=== PATIENT | female | born 1975 | race Caucasian/White ===

== ENCOUNTER → 2017-06-25 08:17 | Outpatient (CLI) | payer BC, SELFPAY ==
--- NOTE | 2017-06-25 08:21 | MM_ITS ---
MM Dig screening mamm BI w/CAD CAD Screening COMPARISON: Digital mammograms 04/02/2015 and 04/10/2016 INDICATION: There is no personal or family history of breast cancer TECHNIQUE: Standard CC and MLO images were obtained. R2 CAD reviewed. FINDINGS: There is a diffusely dense and heterogenic parenchymal pattern definitely lessening the sensitivity of mammography. There are few benign-appearing calcifications in each breast. There is no suspicious lesion in either breast and there are no suspicious microcalcifications. IMPRESSION: Stable dense parenchymal pattern with no suspicious lesion seen recommend yearly follow-up BI-RADS Category: 2 Benign Finding(s) RECOMMENDED FOLLOW-UP: 1YR - 1 YEAR FOLLOW-UP (A letter has been sent to the patient regarding results of the study.)
== END ==
PROVIDERS: PCP Emergency Medicine; Visit Provider Obstetrics & Gynecology
DX: Z12.31 Encounter for screening mammogram for malignant neoplasm of breast (principal)
CPT/HCPCS: 77067

== ENCOUNTER → 2018-08-05 15:43 | Outpatient (CLI) | payer BC, SELFPAY ==
--- NOTE | 2018-08-05 15:48 | MM_ITS ---
MM Dig screening mamm BI w/CAD ORDERING PHYSICIAN : Kris Calvo MD PATIENT AGE: 42 years GENDER: Female COMPARISON: May & 2015. June 2017 INDICATION: Routine screening mammogram. Patient does take estrogen. No new complaints. Noncontributory family history TECHNIQUE: Standard CC and MLO images were obtained. R2 CAD reviewed. FINDINGS: Fairly dense breast bilaterally. Fibroglandular elements & density most pronounced towards upper quadrant of both breasts a similar to previous study.. This region as well as overall parenchymal pattern appears similar, and stable since prior mammograms . No new mass or suspicious calcifications. A few scattered benign punctate calcifications noted bilaterally as detailed below. . Bilateral follow-up in one year adequate. RIGHT BREAST: significant new areas of concern. Subtle 2-3 small calcifications loosely grouped at the deep breast inferiorly on MLO view faintly seen &, are similar to 2015 & can be followed. LEFT BREAST. 2 Small grouping of tiny punctate calcifications seen at the left breast. Previously be followed. Most consistent grouping is seen at Deep breast towards 11 o'clock position. These same benign-appearing punctate calcifications were seen on 2017 2014 and only slightly denser today-can be followed safely. ... IMPRESSION: .... . No new areas of significant concern.. . Follow-up in one year recommended. Dense breast bilaterally-(likely in part reflect exogenous hormones effect,/estrogen) Stable small punctate grouping small calcifications left breast can be followed. BI-RADS Category: 2 Benign Finding(s) RECOMMENDED FOLLOW-UP: 1YR 1 YEAR FOLLOW-UP (A letter has been sent to the patient regarding results of the study.)
== END ==
PROVIDERS: PCP Family Medicine; Visit Provider Obstetrics & Gynecology
DX: Z12.31 Encounter for screening mammogram for malignant neoplasm of breast (principal)
CPT/HCPCS: 77067

== ENCOUNTER → 2019-06-20 13:22 | Outpatient (CLI) | payer BC, SELFPAY ==
[2019-06-20 13:34] LABS: Basophils % 0.4 % (0.1-2.0); Eosinophils # 0.2 K/mm3 (0.0-0.4); Eosinophils % 3.1 % (0.1-12.0); Hematocrit 41.9 % (37.0-47.0); Hemoglobin 14.3 g/dL (12.2-16.2); Lymphocytes % 30.7 % (10-50); Mean Corpuscular HGB Conc 34.2 g/dL (31.8-35.4); Mean Corpuscular Hemoglobin 30.6 pg (27.0-31.2); Mean Corpuscular Volume 89.6 fl (81-99); Mean Platelet Volume 8.6 fl (7.4-10.4); Monocytes # 0.3 K/mm3 (0.1-1.0); Monocytes % 4.9 % (1.7-9.3); Neutrophils # 3.9 K/mm3 (1.8-7.8); Neutrophils % 60.9 % (37.0-80.0); Platelet Count 299 K/mm3 (142-424); Red Blood Count 4.68 M/mm3 (4.20-5.40); Red Cell Distribution Width 13.9 % (11.5-17.5); White Blood Count 6.4 K/mm3 (4.8-10.8)
[2019-06-20 13:57] LABS: Creatine Kinase MB 0.6 ng/ml (0.0-3.6); Troponin I < 0.02 ng/ml (0.00-0.06)
[2019-06-20 14:00] LABS: Alanine Aminotransferase 21 U/L (12-78); Albumin Level 4.4 gm/dL (3.4-5.0); Albumin/Globulin Ratio 1.5 (1.1-1.8); Alkaline Phosphatase 81 U/L (46-116); Anion Gap 14.2 mEq/L (5-15); Aspartate Amino Transferase 7 U/L (15-37); Bilirubin,Total 0.5 mg/dL (0.2-1.0); Blood Urea Nitrogen 16 mg/dL (7-18); CKMB Relative Index 1.2 U/L (0-4.0); Calcium 8.8 mg/dL (8.5-10.1); Carbon Dioxide 27 mmol/L (21.0-32.0); Chloride 103 mmol/L (98-107); Creatine Kinase 50 U/L (26-192); Creatinine,Serum 0.68 mg/dL (0.55-1.02); Estimated Glomerular Filt Rate 94 ml/min (>60); Free T4 (Free Thyroxine) 1.19 ng/dl (0.76-1.46); GFR (African American) 113 ML/MIN (>60); Globulin 2.9 gm/dl (1.3-3.2); Glucose 91 mg/dL (74-106); Potassium 4.2 mmoL/L (3.5-5.1); Sodium 140 mmol/L (136-145); Thyroid Stimulating Hormone 2.05 uIU/ml (0.358-3.740); Total Protein,Serum 7.3 gm/dL (6.4-8.2)
[2019-06-20 15:17] LABS: Chol/HDL Ratio 3.1 (1-3.5); Cholesterol 199 mg/dL (140-200); HDL Cholesterol 64 mg/dL (29-89); LDL Cholesterol 109 mg/dL (0-130); Triglycerides 128 mg/dL (30-200); VLDL Cholesterol 26 mg/dL (0-40)
[2019-06-22 18:00] LABS: Vitamin D 25 Hydroxy 24.2 ng/mL (30.0-100.0)
== END ==
PROVIDERS: Visit Provider Nurse Practitioner Family
DX: R53.83 Other fatigue (principal); K59.00 Constipation, unspecified; M79.622 Pain in left upper arm; E03.9 Hypothyroidism, unspecified; E55.9 Vitamin D deficiency, unspecified
CPT/HCPCS: 80053; 80061; 82550; 82553; 82652; 84439; 84443; 84484; 85025

== ENCOUNTER → 2019-06-26 07:42 | Outpatient (CLI) | payer BC, SELFPAY ==
--- NOTE | 2019-06-26 07:43 | CT_ITS ---
PROCEDURE: CT HEART W CALCIUM SCORE CLINICAL HISTORY: atypical angina Left-sided chest pain COMPARISON: No exams were available for comparison TECHNIQUE: Axial images obtained with sagittal and coronal reformats. All CT scans at the facility use one or more dose reduction, viz: automated exposure control, ma/kV adjustment per patient size (including targeted exams where dose is matched to indication, i.e. head), or iterative reconstruction technique. FINDINGS: The coronary artery calcium score is 0. There is no identifiable calcific atherosclerotic plaque indicating very low cardiovascular disease risk. Incidental findings: 4.4 x 2 cm oval soft tissue density in the retroperitoneum on the left. This is contiguous with the posterior aspect of part of the adrenal gland which is incompletely imaged and may only be due to the superior aspect of the left kidney. Suggest unenhanced CT scan of the abdomen to confirm as a renal or adrenal mass is not excluded. IMPRESSION: 1. No identifiable calcific plaque with coronary artery calcium score of 0. 2. 4.4 x 2 cm oval soft tissue density in the retroperitoneum on the left. This is contiguous with the posterior aspect of part of the adrenal gland which is incompletely imaged and may only be due to the superior aspect of the left kidney. Suggest unenhanced CT scan of the abdomen to confirm as a renal or adrenal mass is not excluded Dictated by: Jevon Quijano MD 06/26/2019 10:08 Electronically signed by Jevon Quijano MD in [place] 06/26/2019 10:08
== END ==
PROVIDERS: PCP Nurse Practitioner Family; Visit Provider Internal Medicine Cardiovascular Disease
DX: Z13.6 Encounter for screening for cardiovascular disorders (principal); I20.8 Other forms of angina pectoris; F17.200 Nicotine dependence, unspecified, uncomplicated
CPT/HCPCS: 75571

== ENCOUNTER → 2019-06-30 06:07 | Outpatient (CLI) | payer BC, SELFPAY ==
--- NOTE | 2019-06-30 06:07 | CA_ITS ---
APPROVED REPORT EXAM: Comprehensive 2D, Doppler, and color-flow Echocardiogram Card Assembler: Ira Patel RVT Ht: 5 ft 5 in Wt: 143lbs BSA: 1.72 BP: 140/74 mmHg Indications: Angina,Smoker 2D Dimensions LVOT 1.62 cm (M/F) 1.5-2.5 M-Mode Dimensions RVDd 3.05 cm (0.9-2.6) LVDd 2.91 cm (3.5-5.7) LVDs 2.02 cm (3.5-5.7) IVSd 1.35 cm (0.6-1.1) PWd 0.99 cm (0.6-1.1) EF (Teich) 59.70% FS 30.60% EDV (Teich) 32.50 mL ESV (Teich) 13.10 mL LV Diastology E/A Ratio 1.35 Mitral Valve MV A Velocity 53.00 (40-130 cm/s) Left Ventricle Left atrium is normal size, left ventricle is normal size, there is no concentric left ventricular hypertrophy, visually estimated ejection fraction 55% with no regional wall motion abnormality, diastolic parameters are within normal range. Right Ventricle Right atrium is normal size, right ventricle is mildly enlarged with normal contractility. Aortic Valve Aortic valve is grossly normal, there is no aortic stenosis or aortic insufficiency. Mitral Valve Mitral valve is grossly normal, there is no mitral stenosis, there is mild mitral regurgitation. Tricuspid Valve Tricuspid valve is grossly normal, there is mild tricuspid regurgitation. Pulmonic Valve Pulmonic valve is poorly visualized. Great Vessels Aortic root is normal size. Pericardium No significant pericardial effusion noted. Conclusion 1. Normal left ventricular size, preserved left ventricular systolic function, visually estimated ejection fraction 55% with no regional wall motion abnormality, diastolic parameters are within normal range. 2. Qualitatively mildly enlarged right ventricle with normal contractility. 3. Mild mitral and tricuspid regurgitation. 4. No significant pericardial effusion noted. Electronically signed by : Manish Rosario, 07/01/2019 06:12:04
--- NOTE | 2019-06-30 06:14 | NM_ITS ---
APPROVED REPORT Exam: Nuclear Stress Test Indication: Chest pain, Tobacco use, Family history Patient Location: Outpatient Stress Tech: Hailee HopkinsQuebrada [place] Tech:Rupali Gann, TRAVIST, RT (R)(N) Ht: 5 ft 5 in Wt: 140 lbs Bra Size: C HR: 57 bpm BP: 148/76 mmHg BSA: 1.70 m2 BMI: 23.2 History: Chest pain, Tobacco use, Family history Procedure: Patient exercised on Arturo protocol 11:15 minutes and sec, resting heart rate 57 bpm, resting blood pressure 148/76 mmHg, with exercise maximum heart rate achived was 169 bpm which is Greater than 85 % of the maximum predicted heart rate and blood pressure was 175/70 mmHg. Test was stopped due to SOB. Patient denied any complaint of chest pain. Patient has Good exercise capacity, achieved 12.8 METs of workload on treadmill, the blood pressure response to exercise was Adequate. Electrocardiogram Resting electrocardiogram showed sinus rhythm, with exercise there is less than 1.[address] segment depression noted from the baseline EKG. The EKG portion of the exercise Myoview is negative for ischemia. Cardiac Stress and Resting SPECT Images: Cardiac Stress and Resting SPECT images were obtained using technetium 99m Myoview 30.7 mCi stress and 10.95 mCi at rest. Gated SPECT for analysis of segmental wall motion and calculation of the ejection fraction also done. Cardiac stress and resting SPECT images show uniform myocardial activity without segmental perfusion abnormality, computer derived ejection fraction is 60% with no regional wall motion abnormality, right ventricle is normal size and contractility. Conclusion: 1. The EKG portion of the exercise Myoview is negative for ischemia, patient has good exercise capacity achieved 12.8 mets of workload on treadmill, the blood pressure response to exercise was adequate, there was no exercise-induced chest discomfort. 2. No scintigraphic evidence of reversible ischemia seen at this level of exercise, computer derived ejection fraction 60% with no regional wall motion abnormality, right ventricle is normal size and contractility. 3. Normal exercise Myoview study. Electronically signed by : Manish Rosario, 06/30/2019 19:36:08
--- NOTE | 2019-06-30 06:14 | CA_ITS ---
APPROVED REPORT Exam: Exercise Treadmill Technologist: Reema Duong, Ht: 5 ft 5 in Wt: 140 lbs BSA: 1.70 m2 HR: 57 bpm BP: 148/76 mmHg Indications: Angina Medical History Medications: Estradiol,,,,, Vitamin D,,,,, Omeperazole,,,,, Allergies: Sulfa Cardiac Risk Factors: FHX of CAD, Smoking Stress Test Details Test: Arturo HR Resting HR: 73 bpm Max Heart Rate (APMHR): 175 bpm Max HR Achieved: 169 bpm Target HR (85% APMHR): 148 bpm % of APMHR: 96 Recovery HR: 108 bpm BP Resting BP: 175/70 mmHg Max BP: 175/70 mmHg Recovery BP: 169.0/75.0 mmHg ECG Resting ECG: Sinus Rhythm Clinical Exercise duration: 11:15 min Highest Stage Achieved: Stage 3: 3.4 mph at 14% grade. Exercise capacity: 12.8 METs Stress ECG Conclusion Arturo Protocol completed. Test stopped due to SOB, that resolved during recovery. No chest pain. No ectopy noted. Less than 1.5mm ST Depression. Images to follow. Test Summary REST . . . . . . . Standing REST . . . . . . . Sitting REST 08:08 0.0 0.0 73 . 175/ 70 . . Stage 1 01:00 10.0 1.7 94 . . . . Stage 1 02:00 10.0 1.7 103 . . . . Stage 1 03:00 10.0 1.7 101 . 154/ 84 . . Stage 2 01:00 12.0 2.5 117 . . . . Stage 2 02:00 12.0 2.5 126 . . . . Stage 2 03:00 12.0 2.5 128 . 162/ 90 . . Stage 3 01:00 14.0 3.4 142 . . . . Stage 3 02:00 14.0 3.4 151 . . . . Stage 3 03:00 14.0 3.4 149 . 174/ 92 . . Stage 4 01:00 16.0 4.2 166 . . . . Stage 4 . . . . . . . Cardiolite injected Stage 4 02:00 16.0 4.2 169 . . . . Stage 4 02:15 16.0 4.2 169 . . . Stop exercise at 11:15 RECOVERY 01:00 0.0 0.0 139 . . . . RECOVERY 02:00 0.0 0.0 108 . 169/ 75 . . RECOVERY 03:00 0.0 0.0 92 . 152/ 64 . . RECOVERY 04:00 0.0 0.0 92 . 152/ 64 . . RECOVERY 04:25 0.0 0.0 96 . 126/ 70 . . Electronically signed by : Manish Rosario, 06/30/2019 19:33:48
--- NOTE | 2019-06-30 08:36 | HMH.ITSHM ---
Current Home Medications as stated by this patient Savannah Corcoran or vendor representatives. []ESTRADIOL OMEPRAZOLE ASA
== END ==
PROVIDERS: PCP Nurse Practitioner Family; Visit Provider Internal Medicine Cardiovascular Disease
DX: I20.8 Other forms of angina pectoris (principal); F17.200 Nicotine dependence, unspecified, uncomplicated
CPT/HCPCS: 78452; 93017; 93306; A9502

== ENCOUNTER → 2019-07-18 12:28 | Outpatient (CLI) | payer BC, SELFPAY ==
--- NOTE | 2019-07-18 12:40 | CT_ITS ---
PROCEDURE: CT ABDOMEN WO/W CON CLINICAL HISTORY: renal protocol The follow-up possible left renal/adrenal mass COMPARISON: CT HEART W CALCIUM SCORE from 06/26/2019 TECHNIQUE: Pre and post enhanced images are obtained following the intravenous administration of 75 mL of Optiray 350 Axial images obtained with sagittal and coronal reformats. All CT scans at the facility use one or more dose reduction, viz: automated exposure control, ma/kV adjustment per patient size (including targeted exams where dose is matched to indication, i.e. head), or iterative reconstruction technique. FINDINGS: The liver, gallbladder, spleen, adrenal glands, pancreas, and kidneys have an unremarkable appearance. The density noted in the retroperitoneum on the left on the coronary arteries scan represents exaggerated superior location of the left kidney. No renal or adrenal mass is evident. There is a small umbilical hernia containing fat. IMPRESSION: Negative CT scan of the abdomen. No evidence of adrenal or renal mass. Dictated by: Jevon Quijano MD 07/18/2019 13:47 Electronically signed by Jevon Quijano MD in [place] 07/18/2019 13:47
== END ==
PROVIDERS: PCP Nurse Practitioner Family; Visit Provider Nurse Practitioner Family
DX: N28.89 Other specified disorders of kidney and ureter (principal)
CPT/HCPCS: 74170; Q9967

== ENCOUNTER → 2019-08-08 15:44 | Outpatient (CLI) | payer BC, SELFPAY ==
--- NOTE | 2019-08-08 15:44 | MM_ITS ---
PROCEDURE: MM DIG SCREENING MAMM BI W/CAD CLINICAL INDICATION: Routine Screening Mammogram There is no personal or family history of breast cancer. The patient is on estrogen. COMPARISON: [facility] DIG MAMM-SCREEN D[facility]AN from 04/10/2016 [facility] MM Dig screening mamm BI w/CAD from 06/25/2017 [facility] MM Dig screening mamm BI w/CAD from 08/05/2018 TECHNIQUE: Standard CC and MLO images and 3D Tomosynthesis was obtained. R2 CAD reviewed. FINDINGS: There is a diffusely dense and heterogenic parenchymal pattern and the findings are bilateral and symmetrical. Francois images are most helpful in this type of breast parenchyma. There is a benign-appearing calcification in each breast. There is no new or suspicious lesion in either breast and no suspicious microcalcifications. IMPRESSION: Stable diffusely dense parenchymal pattern with no suspicious lesions seen BI-RAD Category: 2 Benign Finding(s) FOLLOW-UP: 1YR 1 Year Follow-up (A letter has been sent to the patient regarding results of the study.) Dictated by: Dr. Cesar Estrella MD 08/13/2019 09:[address] Cesar Estrella MD in [place] 08/13/2019 09:20
== END ==
PROVIDERS: PCP Nurse Practitioner Family; Visit Provider Obstetrics & Gynecology
DX: Z12.31 Encounter for screening mammogram for malignant neoplasm of breast (principal)
CPT/HCPCS: 77063; 77067

== ENCOUNTER → 2020-05-03 09:51 | Outpatient (CLI) | payer BC, SELFPAY ==
--- NOTE | 2020-05-03 09:53 | CA_ITS ---
APPROVED REPORT Water Plant Operator: CT Laterality: Bilateral Indications: dizziness Risk Factors Hypertension: Smoking Doppler Spectral Velocity Analysis ECA (R) 41.20/ cm/s ECA (L) 51.70/ cm/s dICA (R) 103.40/39.80 cm/s dICA (L) 101.50/34.70 cm/s Mary (R) 87.70/36.40 cm/s Mary (L) 85.40/41.70 cm/s pICA (R) 69.50/23.00 cm/s pICA (L) 79.10/38.50 cm/s dCCA (R) 124.20/40.30 cm/s dCCA (L) 100.20/37.90 cm/s pCCA (R) 97.30/21.40 cm/s pCCA (L) 112.40/34.70 cm/s Vert (R) 41.20/ cm/s Vert (L) 51.70/ cm/s ICA/CCA 0.80 ICA/CCA 1.00 Findings Duplex evaluation demonstrates stenosis of the right proximal internal carotid artery <20%. Duplex evaluation demonstrates stenosis of the left proximal internal carotid artery <20%. Duplex evaluation demonstrates antegrade flow of the bilateral Vertebral Arteries. Conclusion Duplex evaluation demonstrates stenosis of the right proximal internal carotid artery <20%. Duplex evaluation demonstrates stenosis of the left proximal internal carotid artery <20%. Duplex evaluation demonstrates antegrade flow of the bilateral Vertebral Arteries. Electronically signed by : Jevon Quijano MD 05/03/2020 17:17:43
--- NOTE | 2020-05-03 10:54 | CT_ITS ---
PROCEDURE: CT HEAD/BRAIN WO CON CLINICAL INDICATION: dizziness, left arm numbness COMPARISON: CT HDWO CT HEAD W/O CONTRAST from 11/22/2016 TECHNIQUE: Axial images obtained. All CT scans at the facility use one or more dose reduction, viz: automated exposure control, ma/kV adjustment per patient size (including targeted exams where dose is matched to indication, i.e. head), or iterative reconstruction technique. FINDINGS: No midline shift, mass effect, intracranial hemorrhage, hydrocephalus, or extra-axial fluid collection is evident. The calvarium has an unremarkable appearance. No mastoid effusion. There is mucosal thickening involving the ethmoid sinuses IMPRESSION: Ethmoid sinus disease otherwise with no acute intracranial Dictated by: Jevon Quijano MD 05/03/2020 16:31 Jevon Quijano MD in [place] 05/03/2020 16:31
== END ==
PROVIDERS: PCP Nurse Practitioner Family; Visit Provider Urology
DX: R42 Dizziness and giddiness (principal); R20.0 Anesthesia of skin; R00.1 Bradycardia, unspecified; I10 Essential (primary) hypertension; F17.200 Nicotine dependence, unspecified, uncomplicated
CPT/HCPCS: 70450; 93880

== ENCOUNTER → 2020-05-13 08:58 | Outpatient (CLI) | payer BC, SELFPAY ==
[2020-05-13 11:56] LABS: Chloride 105 mmol/L (98-107)
[2020-05-13 11:57] LABS: Potassium 4.4 mmoL/L (3.5-5.1); Sodium 140 mmol/L (136-145)
[2020-05-13 12:00] LABS: Anion Gap 10.4 mEq/L (5-15); Blood Urea Nitrogen 16 mg/dl (7-17); Calcium 9.2 mg/dl (8.4-10.2); Carbon Dioxide 29 mmol/L (22.0-30.0); Estimated Glomerular Filt Rate 108 ml/min (>60); GFR (African American) 130 ML/MIN (>60); Glucose 77 mg/dl (74-100)
== END ==
PROVIDERS: Visit Provider Urology
DX: R00.1 Bradycardia, unspecified (principal); R42 Dizziness and giddiness; R20.0 Anesthesia of skin; I10 Essential (primary) hypertension; F17.200 Nicotine dependence, unspecified, uncomplicated
CPT/HCPCS: 36415; 80048

== ENCOUNTER → 2020-08-09 14:58 | Outpatient (CLI) | payer BC, SELFPAY ==
--- NOTE | 2020-08-09 14:58 | MM_ITS ---
PROCEDURE: MM DIG SCREENING MAMM BI W/CAD Digital Breast Tomosynthesis Included CLINICAL INDICATION: screening There is no personal or family history of breast cancer. The patient currently is on estrogen. COMPARISON: [facility] MM Dig screening mamm BI w/CAD from 06/25/2017 [facility] MM Dig screening mamm BI w/CAD from 08/05/2018 [facility] MM DIG SCREENING MAMM BI W/CAD from 08/08/2019 TECHNIQUE: Standard CC and MLO images and 3D Tomosynthesis was obtained. R2 CAD reviewed. FINDINGS: There is a diffusely dense and heterogenic parenchymal pattern basically stable and unchanged from the previous exam. There are few scattered benign-appearing microcalcifications in each breast in addition to minimal arterial calcification in each breast. There is no new or suspicious lesion in either breast and no suspicious microcalcifications. IMPRESSION: Stable diffusely dense parenchymal pattern with no suspicious lesions seen BI-RAD Category: 2 Benign Finding(s) FOLLOW-UP: 1YR 1 Year Follow-up (A letter has been sent to the patient regarding results of the study.) Dictated by: Dr. Cesar Estrella MD 08/11/2020 08:58 Dr. Cesar Estrella MD in [place] 08/11/2020 08:58
== END ==
PROVIDERS: PCP Nurse Practitioner Family; Visit Provider Nurse Practitioner Family
DX: Z12.31 Encounter for screening mammogram for malignant neoplasm of breast (principal)
CPT/HCPCS: 77063; 77067

== ENCOUNTER → 2020-11-12 14:16 | Outpatient (CLI) | payer BC, SELFPAY | PROVIDERS: Visit Provider Internal Medicine Gastroenterology | DX: Z01.812 Encounter for preprocedural laboratory examination (principal); Z11.52 Encounter for screening for COVID-19; Z13.810 Encounter for screening for upper gastrointestinal disorder; Z12.11 Encounter for screening for malignant neoplasm of colon | CPT/HCPCS: U0003 ==

== ENCOUNTER 2020-11-15 08:40 | Day surgery (SDC) | payer BC, SELFPAY ==
[2020-11-09 12:49] VITALS: BMI 23.1
[2020-11-15] VITALS (7 sets, daily range): BP systolic 93–136; BP diastolic 55–74; PULSE 47–58; RESP 18; TEMP 37.1; O2SAT 97–100
--- NOTE | 2020-11-15 09:12 | P.PN_ITS ---
[facility] Anesthesia Checklist - Patient Identification Patient Identification: Arm Band - Structural Data Admitted From: Home Planned Operative Procedure/s: EGD/Colonoscopy Consent for Planned Operative Procedure(s) Verified: Yes - NPO Status Verified Time NPO: 00:00 - Airway Assessment C-Spine Mobility Assessed: Yes TMJ Mobility Assessed: Yes Dentition: Good Dentition - Neurological Assessment Level of Consciousness: Awake - Anesthesia Plan Anesthesia Risk discussed: Yes Anesthesia Plan: Verified ASA Class: II Anesthesia Type: MAC [facility] History I have reviewed the patient's past medical history: Yes Medical History: Reports:: Gastroesophageal Reflux Disease(GERD), Hypertension Denies:: Cancer, Diabetes Mellitus Type 1, Diabetes Mellitus Type 2, Internal Pacemaker, MRSA, Seizures *Have you ever received a pneumonia vaccine?: No *Have you received a flu vaccine this season?: No Other Medical History: Reports: Other Anesthesia experience/problems:: None Other Surgeries: Yes: , Hysterectomy-Total, Other. No: Pacemaker Amputation: No Fractures: No - *Social History Last grade of school completed: Some college Smoking Status: Current every day smoker Tobacco Type: cigarettes # Packs/Day (cigarettes): 1 Alcohol Intake: current Alcohol Intake Frequency:: a few times a month Substance Use Type: denies use *Occupational Status:: employed Housing: house Household Members: spouse *Travel in the last 8 weeks: None Family Hx:: Cancer
--- NOTE | 2020-11-15 10:07 | P.PCN_ITS ---
[facility] Procedure Note Procedure Note:: Upper Endoscopy Procedure Report: Esophagogastroduodenoscopy with cold biopsies Endoscopost: Robb Lamas II, MD Referring Physician: ENZO Gonzales Date of Procedure: November 15, 2020 Equipment: Olympus GIF 190 standard upper endoscope Sedation: MAC sedation Indications: Mrs. Corcoran is a 44-year-old female who is here for screening upper endoscopy. Her father had esophageal cancer in his mid 60s. She reports no heartburn, reflux or dysphagia. She reports no indigestion or dyspepsia. This is her first upper endoscopy. Procedure: Prior to the procedure, a history and physical exam was performed, and patient's medications and allergies were reviewed. The risks, benefits and alternatives of the sedation and procedure were discussed with the patient. All questions were answered and informed consent was obtained. The patient was brought to the procedure room. Patient identification and proposed procedure were verified by the physician and the nurse. The patient was placed in a left lateral decubitus position and the scope was passed under direct vision. Throughout the procedur e, the patient's blood pressure, pulse, and oxygen saturations were monitored continuously. The upper GI endoscopy was accomplished without difficulty. The patient tolerated the procedure well. Findings: The scope was passed directly into the upper esophagus and advanced to the third portion of the duodenum. The post bulbar duodenum and duodenal bulb were normal with normal mucosa and conniventes. The scope was withdrawn through a normal duodenal bulb and pylorus into the stomach. There was some mild bile reflux with mild linear reactive gastropathy of the antrum. The remainder of the body and fundus of the stomach were grossly normal. Upon retroflexion there was no hiatal hernia. 2 biopsies were taken in the antrum and along the lesser curvature for histology to rule out gastritis and/or H pylori. The scope was then withdrawn into the esophagus. There was some mildly serrated Z-line. Cold biopsies were obtained at the GE junction. The remainder of the esophageal mucosa was normal. Impression: 1. Mild linear reactive gastropathy Plan: I will follow-up the biopsies. The patient should not require further surveillance since there is no evidence of Cárdenas's esophagus. Esophageal cancer does not have the stronger genetic influence as does colon cancer. Generally this can be acquired from risk factors (i.e. GERD, smoking, etc.). The patient does not have any endoscopic or personal risk factors and her father was over age 60. I will discuss the findings with the patient and family and proceed with colonoscopy.
--- NOTE | 2020-11-15 10:26 | HMH.PROC ---
[facility] Procedure Note Procedure Note:: Colonoscopy Procedure Report: Colonoscopy with cold snare polypectomy and Endo Clip placement Endoscopist: Rbob Lamas II, MD Referring physician: ENZO Gonzales Date of Procedure: November 15, 2020 Equipment: Olympus 190 variable stiffness pediatric colonoscope Sedation: MAC sedation Indication: Mrs. Corcoran is a 44-year-old female who is here for high risk screening colonoscopy. Her sister had colon cancer at the age of 50. The patient reports no abdominal pain, weight loss, change in her bowel habits or rectal bleeding. This is her first colonoscopy. Procedure: Prior to the procedure, a history and physical exam was performed, and patient's medications and allergies were reviewed. The risks, benefits and alternatives of the sedation and procedure were discussed with the patient. All questions were answered and informed consent was obtained. The patient was brought to the procedure room. Patient identification and proposed procedure were verified by the physician and the nurse. The patient was placed in a left lateral decubitus position and the scope was passed under direct vision. Throughout the procedure, the patient's blood pressure, pulse, and oxygen saturations were monitored continuously. The colonoscopy was accomplished without difficulty. The patient tolerated the procedure well. Findings: On digital rectal examination there was normal rectal tone. There were no external hemorrhoids. The colonoscope was introduced through the anal canal to the rectum and advanced to the cecum. The ileocecal valve and appendiceal orifice were identified. The scope was advanced a short distance into the ileum which appeared grossly normal. The scope was then withdrawn into the colon. The cecum, ascending, transverse, descending and sigmoid colon were grossly normal. There was a 9 to 10 mm rectosigmoid polyp removed via cold snare polypectomy. There was minor heme at the polypectomy site so a single Endo Clip was utilized to close the polypectomy site and provide complete hemostasis. The rectum was normal. There were no other mucosal abnormalities identified. Upon retroflexion within the rectum there were grade 1 internal hemorrhoids.The preparation was excellent throughout with [place] Preparation Score of 9. The cecal time was 12 minutes. Impression: 1. Rectosigmoid polyp (9 to 10 mm) 2. Grade 1 internal hemorrhoids Plan: I will follow up the polyp pathology and recommend repeat colonoscopy again in 3-5 years based upon the polyp histology and patient family history. I would encourage bulking fiber supplementation on a long-term daily maintenance basis.
== END 2020-11-15 11:15 | disposition home or self-care (01) ==
LOC: OUTP 08:41
PROVIDERS: PCP Nurse Practitioner Family; Visit Provider Internal Medicine Gastroenterology
PROC: 0DJ08ZZ Inspection of Upper Intestinal Tract, Via Natural or Artificial Opening Endoscopic (ICD-10-PCS; CPT 43235; principal; 2020-11-15 10:00)
DX: Z12.11 Encounter for screening for malignant neoplasm of colon (principal); Z80.0 Family history of malignant neoplasm of digestive organs; K63.5 Polyp of colon; K64.0 First degree hemorrhoids; Z13.810 Encounter for screening for upper gastrointestinal disorder; K31.9 Disease of stomach and duodenum, unspecified; I10 Essential (primary) hypertension; K21.9 Gastro-esophageal reflux disease without esophagitis; Z72.0 Tobacco use; Z88.2 Allergy status to sulfonamides
CPT/HCPCS: 45385; 43239

== ENCOUNTER → 2021-08-10 15:40 | Outpatient (CLI) | payer BC, SELFPAY ==
--- NOTE | 2021-08-10 15:41 | MM_ITS ---
PROCEDURE INFORMATION: Exam: MG Bilateral Screening 3D Mammography Exam date and time: 08/10/2021 3:41 PM Age: 45 years old Clinical indication: Screening mammogram TECHNIQUE: Imaging protocol: Bilateral Screening tomosynthesis and 2D mammography including computer-aided detection (CAD) when performed. COMPARISON: MG MM DIG SCREENING MAMM BI W/CAD 08/09/2020 3:33 PM FINDINGS: MAMMOGRAPHY: Breast composition: The breast tissue is heterogeneously dense, which may obscure small masses. Mass: None. Architectural distortion: No new or suspicious architectural distortion. Calcifications: No new or suspicious calcifications are present Asymmetric density: No new or suspicious asymmetric density is present Skin thickening: None. Axillary adenopathy: None. IMPRESSION: No mammographic evidence of malignancy. Recommend annual screening mammography unless otherwise clinically indicated. ASSESSMENT: BI-RADS category 1: Negative
== END ==
PROVIDERS: PCP Nurse Practitioner Family; Visit Provider Nurse Practitioner Family
DX: Z12.31 Encounter for screening mammogram for malignant neoplasm of breast (principal)
CPT/HCPCS: 77063; 77067

== ENCOUNTER 2022-05-26 11:00 | Outpatient (RCR) | payer BC, SELFPAY ==
--- NOTE | 2022-05-11 15:49 | HMH.OTOPEV ---
OT Inpatient Evaluation Rehab OT Outpatient Eval Start: 05/11/22 15:39 Freq: Status: Active Protocol: Document 05/11/22 15:39 VIPUL (Rec: 05/11/22 15:49 [id number] E-signed By Myra Cam, OT Outpatient Therapy Subjective History Subjective History Pt is a 46 year old female who reports to therapy for initial evaluation to left shoulder/scapula. Pt explains she began having numbness/ tingling in her Left hand and fingers ~5-6 months ago. Pt explains she feels weakness down her arm, but numbness is only in the hand. Pt did have a nerve conduction test that was negative for CTS. Pt also reports if she presses on the scapula around the teres minor her symptoms of numbness and weakness down the arm increase. Pt's AROM of left shoulder is within functional limits. She does demonstrate a slight decrease in strength in left shoulder. Pt will continues to be seen weekly in order to address these deficits. Chief Complaint Paresthesia,Weakness Symptom Type Numbness,Tingling Symptoms Relieved By Nothing Symptoms Aggravated By Physical Activity Prior Functional Limitations None Current Functional Limitations Lifting,Housework,Sleeping, Recreation Activity Symptom Description Intermittent,Activity Dependent Level of pain today (0-10) 0 Pain scale - at its best (0-10) 0 Pain scale - at its worst (0-10) 0 Shoulder/Elbow Eval Shoulder Objective Measurements Shoulder ROM Left Shoulder Abduction Active Range of 165 degrees Motion (degrees) Shoulder Flexion Active Range of Motion 148 degrees (degrees) Query Text: Shoulder External Rotation Active Range 85 degrees of Motion (degrees) Shoulder Internal Rotation Active Range 85 degrees of Motion (degrees) Shoulder MMT Shoulder Abduction Strength Grade 4- Good- Shoulder Extension Strength Grade 4- Good- Shoulder Flexion Strength Grade 4- Good- Shoulder External Rotation Strength 4- Good- Grade Angelica
== END 2022-05-26 11:05 | disposition home or self-care (01) ==
LOC: OT 11:00
PROVIDERS: PCP Nurse Practitioner Family; Visit Provider Orthopaedic Surgery
DX: M25.512 Pain in left shoulder (principal)
CPT/HCPCS: 97110; 97140; 97166

== ENCOUNTER → 2022-08-11 14:27 | Outpatient (CLI) | payer BC, SELFPAY ==
--- NOTE | 2022-08-11 14:31 | MM_ITS ---
PROCEDURE INFORMATION: Exam: MG Bilateral Screening 3D Mammography Exam date and time: 08/11/2022 2:27 PM Age: 46 years old Clinical indication: Screening. No family history of breast cancer. TECHNIQUE: Imaging protocol: Bilateral Screening tomosynthesis and 2D mammography including computer-aided detection (CAD) when performed. COMPARISON: 1. MG MM DIG SCREENING MAMM BI W/CAD 08/10/2021 3:41 PM 2. MG MM DIG SCREENING MAMM BI W/CAD 08/09/2020 3:33 PM 3. MG MM DIG SCREENING MAMM BI W/CAD 08/08/2019 4:04 PM 4. MG SCBI MM Dig screening mamm BI w/CAD 08/05/2018 4:07 PM FINDINGS: MAMMOGRAPHY: Breast composition: The breasts are extremely dense, which lowers the sensitivity of mammography. Mass: None. Architectural distortion: None. Calcifications: No suspicious calcifications. Asymmetric density: None. Skin thickening: None. Axillary adenopathy: None. IMPRESSION: No mammographic evidence of malignancy. Annual screening is recommended unless otherwise clinically indicated. ASSESSMENT: BI-RADS Category 1: Negative
== END ==
PROVIDERS: PCP Nurse Practitioner Family; Visit Provider Nurse Practitioner Family
DX: Z12.31 Encounter for screening mammogram for malignant neoplasm of breast (principal)
CPT/HCPCS: 77063; 77067

== ENCOUNTER 2023-03-11 19:40 | Emergency (ER) | payer BC, SELFPAY ==
[2023-03-11 19:55] VITALS: BP 171/88; PULSE 78; RESP 19; TEMP 36.9; O2SAT 99; BMI 25.3
--- NOTE | 2023-03-11 20:26 | EXP.UTC ---
Discharge Plan Disposition Patient Disposition: Home, Self-Care Condition: Good Prescriptions Prescriptions: No Action estradiol 2 mg tablet 2 mg PO DAILY 90 Days Qty: 90 3RF losartan 25 mg tablet 25 mg PO DAILY Referrals Follow up/Referrals: Vy Corcoran APRN [Primary Care Provider] - See instructions Activity Restrictions/Add. Instructions Additional Instructions/Restrictions: Staple instructions: ?You have required [place] today. Please read the following instructions so you know how to care for them: ?1. Keep wound area dry for the first 24 hours. 2?? May clean gently with mild soap and water, after 48 hours to prevent crusting over suture knots. 3. You may shower if your provider gives permission but do not take a bath until the skin is healed.. 4. Never leave a wet dressing or Band-Aid on your stitches as this allows bacteria to reach the area and may cause infection. Band-aids can cause the wound to sweat and not recommended to wear for long periods of time Watch for signs of infection: ? Increasing redness, tenderness or warmth around the suture site ? Unusual swelling around the site ? Appearance of pus around each suture or any red streaks ? Fever If you develop any of the above signs or symptoms of infection, Follow up with Family Physician immediately 5. Suture removal in __7__days 6. Return to [facility] or follow up with family doctor for removal. This can be done by any medical provider dur?ing regular hours on Sunday through Sunday, by appointment. Clinical Impressions Clinical Impression: Laceration Instructions Patient Instructions: DI for Laceration Repair -- Connor Discharge ED Provider: Edith Lowry [facility] [place] General Stated complaint: AO 1001@1700 Lac to head Mode of Arrival: Ambulatory Source of Information: Patient Limitations: No Limitations Time Seen by Provider: 03/11/23 20:26 Description of Symptoms (Recalled from Triage Doc. by RN): PATIENT C/O LACERATION TO SCALP AFTER A BOARD FELL ON IT TODAY. DENIES LOC, DENIES ANY OTHER INJURIES HEENT Symptoms (Recalled from RN notes): No Resp Symptoms (Recalled from RN notes): No Skin Symptoms (Recalled from RN notes): Yes MS Symptoms (Recalled from RN notes): No Functional Status (Recalled from RN notes): WNL History of Present Illness Provider Complaint: Patient states around 5pm she was helping her with rafters and she had her sunglasses on top of her head when a board fell and hit her sunglasses and the metal on them cut the top of her head States that she thought it was ok and she tried to apply pressure but it has continued to bleed on and off since so she came in to see if it may need connor or something Denies LOC Denies headache denies nausea Related Data Home Medications Medication Instructions Recorded Confirmed losartan 25 mg tablet 25 mg PO DAILY Hypertension 03/11/23 03/11/23 Previous Rx's Medication Instructions Recorded estradiol 2 mg tablet 2 mg PO DAILY Supplement 90 days 01/04/23 #90 tabs Allergies Allergy/AdvReac Type Severity Reaction Status Date / Time Sulfa (Sulfonamide Allergy Unknown Verified 09/04/22 15:11 Antibiotics) [SULFA (SULFONAMIDE ANTIBIOTICS)] Worker's Comp Is this a Worker's Comp case?: No [facility] [place] Disclaimer: The information contained in this section may have been updated after the patient was seen, as this information can be updated by other users. Medical History (Updated 03/11/23 @ 20:33 by Edith Lowry APRN) Dizziness HTN (hypertension) Left arm numbness Numbness of left hand Sinus bradycardia Surgical History (Updated 09/04/22 @ 15:18 by JAMIE Rausch) History of hysterectomy Social History Smoking Status: Current every day smoker tobacco type: cigarettes packs per day: 1 second hand exposure: No alcohol intake: current substance use type: mateo
[2023-03-11 20:48] VITALS: BP 171/88; PULSE 78; RESP 19; TEMP 36.9; O2SAT 99
== END 2023-03-11 20:51 | disposition home or self-care (01) ==
PROVIDERS: Emergency Provider Nurse Practitioner; PCP Nurse Practitioner Family
DX: S01.01XA Laceration without foreign body of scalp, initial encounter (principal); I10 Essential (primary) hypertension; F17.210 Nicotine dependence, cigarettes, uncomplicated; W20.8XXA Other cause of strike by thrown, projected or falling object, initial encounter
CPT/HCPCS: 12001; 99203; 99213; G0463

== ENCOUNTER 2023-03-18 08:42 | Emergency (ER) | payer BC, SELFPAY ==
[2023-03-18 08:43] VITALS: BP 177/78; PULSE 67; RESP 18; TEMP 36.7; O2SAT 99; BMI 25.0
[2023-03-18 08:56] VITALS: BP 177/78; PULSE 67; RESP 18; TEMP 36.7; O2SAT 99
== END 2023-03-18 08:55 | disposition home or self-care (01) ==
LOC: UTC 08:44
PROVIDERS: Emergency Provider Nurse Practitioner Family; PCP Nurse Practitioner Family
DX: Z48.02 Encounter for removal of sutures (principal); S01.01XA Laceration without foreign body of scalp, initial encounter

== ENCOUNTER 2023-08-15 15:08 | Outpatient (CLI) | payer BC, SELFPAY ==
--- NOTE | 2023-08-15 15:11 | MM_ITS ---
PROCEDURE INFORMATION: Exam: MG Bilateral Screening 3D Mammography Exam date and time: 08/15/2023 3:00 PM Age: 47 years old Clinical indication: Screening. No family history of breast cancer. TECHNIQUE: Imaging protocol: Bilateral Screening tomosynthesis and 2D mammography including computer-aided detection (CAD) when performed. COMPARISON: 1. MG MM DIG SCREENING MAMM BI W/CAD 08/11/2022 2:27 PM 2. MG MM DIG SCREENING MAMM BI W/CAD 08/10/2021 3:41 PM 3. MG MM DIG SCREENING MAMM BI W/CAD 08/09/2020 3:33 PM 4. MG MM DIG SCREENING MAMM BI W/CAD 08/08/2019 4:04 PM FINDINGS: MAMMOGRAPHY: Breast composition: The breasts are extremely dense, which lowers the sensitivity of mammography. Mass: None. Architectural distortion: None. Calcifications: No suspicious calcifications. Asymmetric density: None. Skin thickening: None. Axillary adenopathy: None. IMPRESSION: No mammographic evidence of malignancy. Annual screening is recommended unless otherwise clinically indicated. ASSESSMENT: BI-RADS Category 1: Negative
== END 2023-08-15 23:59 ==
LOC: RAD 15:08
PROVIDERS: PCP Nurse Practitioner Family; Visit Provider Nurse Practitioner Family
DX: Z12.31 Encounter for screening mammogram for malignant neoplasm of breast (principal)
CPT/HCPCS: 77063; 77067

== ENCOUNTER 2024-01-25 07:15 | Observation (INO) | payer BC, SELFPAY ==
[2024-01-25] VITALS (27 sets, daily range): BP systolic 125–203; BP diastolic 65–112; PULSE 48–83; RESP 13–20; TEMP 36.7–36.8; O2SAT 93–100; BMI 23.3; BMI 24.1
--- NOTE | 2024-01-25 07:18 | XR_ITS ---
FINAL REPORT CLINICAL HISTORY: CP, LUE heaviness FINDINGS: SINGLE-VIEW CHEST The heart size is normal. The mediastinum is normal. The lungs are clear. There is no pneumothorax. IMPRESSION: No acute cardiopulmonary process. Reviewed, Interpreted and Dictated by Hugo Petersen III, MD Transcribed by Krysta Marquez Authenticated and [facility]
[2024-01-25] MEDS: NITROGLYCERIN 0.4MG SL TABLET 0.4 MG SL (07:19)
--- NOTE | 2024-01-25 07:23 | HMH.EDCP ---
Discharge Plan Disposition Patient Disposition: Admitted Chief Complaint: Chest Pain Clinical Impressions Clinical Impression: Hypertensive emergency, Stable angina, Elevated troponin Discharge ED Provider: Clarke Phelan HPI General Chief Complaint: Chest Pain Stated Complaint: chest pain Time Seen by Provider: 01/25/24 07:17 History of Present Illness HPI narrative: Please note that above description of symptoms, in this electronic medical record under categorization of recalled from ER triage doctor by RN are reflective of an initial nursing assessment, however, is not reflective of my full history and physical exam that was personally taken and clarified. Consequentially, this preceding description of symptoms, which may include the patient's categorized chief complaint in the EMR, do not reflect my personal clinical impression, and the ultimate description of history of present illness and patient stated complaints should be deferred to this section of the note. Unless stated otherwise or congruent with this section of the note, additional signs, symptoms, or incongruence should be interpreted as inaccurate with my clinical impression. Related Data Home Medications ?Medication ?Instructions ?Recorded ?Confirmed losartan 25 mg tablet 25 mg PO DAILY 03/11/23 01/25/24 estradiol 2 mg tablet 2 mg PO DAILY 01/25/24 01/25/24 Allergies Allergy/AdvReac Type Severity Reaction Status Date / Time Sulfa (Sulfonamide Allergy Unknown Rash Verified 01/25/24 07:38 Antibiotics) [SULFA (SULFONAMIDE ANTIBIOTICS)] [facility] Disclaimer: The information contained in this section may have been updated after the patient was seen, as this information can be updated by other users. Medical History (Updated 01/25/24 @ 09:56 by Clarke Phelan MD) Dizziness Numbness of left hand Sinus bradycardia HTN (hypertension) Left arm numbness Surgical History History of hysterectomy Social History Smoking Status: Current every day smoker tobacco type: cigarettes packs per day: 1 second hand exposure: No alcohol intake: current alcohol intake frequency: a few times a month substance use type: denies use current occupational status: employed Travel in the last 8 weeks: Inside the [place] household members: spouse housing: house current occupation: [employer] current occupational exposures/hazards: No caffeine: Yes ROS Obtained: Yes All systems reviewed & no additional complaints except as documented Physical Exam General General appearance: alert, in no apparent distress and anxious Neck Neck exam: Present trachea midline Chest Chest inspection: Present normal inspection and symmetric chest wall rise Respiratory Respiratory exam: Present normal lung sounds bilaterally; Absent respiratory distress, wheezes, stridor, accessory muscle use or prolonged expiratory phase Cardiovascular Cardiovascular exam: Present regular rate, normal rhythm and other (Pulses equal and symmetric in upper and lower extremities) Extremities Exam Extremities exam: Absent edema Neurological Exam Neurological exam: Present alert, oriented X3 and CN II-XII intact Skin Skin exam: Present warm and dry; Absent cyanosis, diaphoresis or pallor HEART Score HEART Score HEART Score assessment performed?: Yes History (anamnesis): Moderately suspicious ECG: Non-specific disturbance Age: 45-65 years Risk factors: 1-2 risk factors Troponin: 1-3x normal limit HEART Score: 5 Critical Care Critical Care Time Critical Care Time: Yes (cv) Attestation: On 01/25/24, the high probability of a clinically significant, sudden or life threatening deterioration of the following system(s) required my full and direct attention, intervention and personal management. The time I documented below is in addition to time spent performing reported procedures but includes the following listed in this critical care notation. Total Time Total Critical Care Time: 40 Medical Decision Making Medical Records Medical records reviewed: Yes I reviewed the patient's medical records. Gonzalo Inquiry Pt receiving controlled substance: No Gonzalo was queried for this patient: No Vital Signs Vital Signs: 01/25/24 07:19 01/25/24 07:20 01/25/24 07:21 Temperature 98.1 F Temperature Source Oral Pulse Rate 70 Pulse Rate [Left] 83 Respiratory Rate 13 15 Blood Pressure 198/100 H 170/97 H Blood Pressure [Right Arm] 203/112 H Blood Pressure Mean [Right Arm] 142 Blood Pressure Source [Right Arm] Automatic Cuff Blood Pressure Position [Right Arm] Sitting 02 Sat by Pulse Oximetry 100 100 Oxygen Delivery Method Room Air 01/25/24 07:22 01/25/24 07:30 01/25/24 08:00 Temperature Temperature Source Pulse Rate 58 L 60 Pulse Rate [Left] Respiratory Rate 13 14 Blood Pressure 170/97 H 154/84 H 144/67 H Blood Pressure [Right Arm] Blood Pressure Mean [Right Arm] Blood Pressure Source [Right Arm] Blood Pressure Position [Right Arm] 02 Sat by Pulse Oximetry 98 100 Oxygen Delivery Method Room Air 01/25/24 08:30 01/25/24 09:00 Temperature Temperature Source Pulse Rate 66 60 Pulse Rate [Left] Respiratory Rate 14 15 Blood Pressure 149/90 H 151/84 H Blood Pressure [Right Arm] Blood Pressure Mean [Right Arm] Blood Pressure Source [Right Arm] Blood Pressure Position [Right Arm] 02 Sat by Pulse Oximetry 99 99 Oxygen Delivery Method Room Air Lab Data Labs: Lab Results 01/25/24 07:20: WBC 6.9, RBC 4.63, Hgb 14.0, Hct 43.7, MCV 94.4, MCH 30.3, MCHC 32.1, RDW 14.4, Plt Count 255, MPV 8.0, Neut % (Auto) 53.2, Lymph % (Auto) 35.8, [place] % (Auto) 6.0, Eos % (Auto) 4.0, Baso % (Auto) 1.0, Neut # (Auto) 3.7, Lymph # (Auto) 2.5, [place] # (Auto) 0.4, Eos # (Auto) 0.3, Baso # (Auto) 0.1, APTT 29.0, Sodium 140, Potassium 3.6, Chloride 108 H, Carbon Dioxide 27, Anion Gap 8.6, BUN 15, Creatinine 0.70, Estimated Creat Clear 96, Estimated GFR 89, Est GFR ( Amer) 107, Glucose 115 H, Hemoglobin A1c 4.8, Calcium 8.7, Magnesium 1.8, Total Bilirubin 0.7, AST 22, ALT 20, Alkaline Phosphatase 67, Troponin I 0.04 H, NT-Pro-B Natriuret Pep 165 H, Total Protein 6.7, Albumin 4.2, Globulin 2.5, Albumin/Globulin Ratio 1.7, Triglycerides 67, Cholesterol 168, LDL Cholesterol Direct 83.03 L, VLDL Cholesterol 13, HDL Cholesterol 57, Cholesterol/HDL Ratio 2.9, Lipase 30 01/25/24 07:20 01/25/24 07:20 Response Orders (Tests/Meds): ED MEDICATIONS Generic Name Dose Route Start Last Admin Trade Name Freq PRN Reason Stop Dose Admin Nitroglycerin 0.4 mg 01/25/24 07:20 01/25/24 07:19 Nitroglycerin 0.4mg Sl Tablet SL 02/24/24 07:19 0.4 mg [id number] PRN Administration Chest Pain Discontinued Medications Generic Name Dose Route Start Last Admin Trade Name Poonam PRN Reason Stop Dose Admin Aspirin 324 mg 01/25/24 07:18 01/25/24 07:32 Aspirin 81mg Chewable Tablet PO 01/25/24 07:19 324 mg ONCE ONE Administration Clopidogrel Bisulfate 300 mg 01/25/24 09:03 01/25/24 09:41 Clopidogrel 300mg Tablet PO 01/25/24 09:04 300 mg ONCE ONE Administration ORDERS Category Date Time Status Consult to Cardiology [CONS] Routine Cons 01/25/24 09:04 Active XR chest portable Stat Exams 01/25/24 07:18 Taken Complete Blood Count Auto Diff Stat Lab 01/25/24 07:20 Completed Comprehensive Metabolic Panel Stat Lab 01/25/24 07:20 Completed Hemoglobin A1C Stat Lab 01/25/24 07:20 Completed Lipase Stat Lab 01/25/24 07:20 Completed Lipid Panel Stat Lab 01/25/24 07:20 Completed Magnesium Stat Lab 01/25/24 07:20 Completed NT Pro Brain Natriuretic Pep. Stat Lab 01/25/24 07:20 Completed PTT [Activated Partial Thrombo Time] Stat Lab 01/25/24 07:20 Completed Troponin I Q3H Lab 01/25/24 10:30 Ordered Troponin I Q3H Lab 01/25/24 13:30 Ordered Troponin I Stat Lab 01/25/24 07:20 Completed MDM Narrative Medical Decision Narrative: 48 female history of hypertension, tobacco use presenting with chest pain. Patient states that chest pain started this morning, 01/24 shortly after she got to work at 6 AM. She keeps a blood pressure cuff at her desk, took her blood pressure, it was around 190 systolic. States that she has also been having cramping and discomfort in her left upper extremity this been going on for months, but it was also present this morning, so given the constellation of symptoms came to the emergency department. No nausea, vomiting, diaphoresis, shortness of breath, lower extremity swelling, recent sick contacts, recent travel, productive cough, fevers or chills, or any other concerns. No neurologic deficits.. History was obtained via conversation with patient. On arrival, patient hemodynamically stable, alert, oriented x4, appropriate, GCS 15, moving all extremities spontaneously, pupils equal and reactive to light. Full physical exam performed and significant for well-appearing female who appears mildly anxious, no acute distress. Normal cardiopulmonary exam other than hypertension with systolic greater than 200, diastolic greater than 110. Pulses equal and symmetric, no lower extremity edema. Neurologically intact. Differential includes hypertensive urgency, hypertensive emergency, ACS, [place], CHF, pneumothorax, microvascular coronary artery disease, among others. Patient was given aspirin 324 mg, nitroglycerin for symptomatic management and correction of underlying abnormalities. Patient placed on continuous cardiac monitoring and continuous pulse ox with initial blood pressure 220/112, heart rate 83, saturation 100% on room air. Independent interpretation of EKG shows sinus [id number] beats a minute with ST depressions throughout precordial leads without reciprocal change. DC 150, QRS 86, QTc 375. [place] normal. Workup independently interpreted and significant for nonactionable CBC or chemistry. Patient's troponin 0.04, BNP negative.. On independent interpretation of imaging, chest x-ray without acute cardiopulmonary airspace disease. See radiology read for full review of final results. Heart score 5. On reevaluation, patient's pain completely resolved with aspirin and nitroglycerin, closer to baseline blood pressure. Cardiology was consulted and case was discussed at length. Consult placed. Patient be given Plavix load. Because patient symptom-free, heparin was held after repeat EKG showed near resolution of ischemic changes. Hospital medicine was contacted and case was discussed at length, patient to be admitted for ACS, stable angina. Because patient high risk for clinical decompensation, deemed appropriate for inpatient admission. Results were relayed to patient who voiced understanding and patient was agreeable to inpatient admission and management. Patient was admitted to the hospital for further definitive management. Conference Assistant disclaimer Much of this encounter note is an electronic perl software engineer spoken language to printed text. Electronic perl software engineer of the spoken language may permit errors. Although I have reviewed the note, some errors may still exist.
[2024-01-25] MEDS: ASPIRIN 81MG CHEWABLE TABLET 324 MG PO (07:32)
--- NOTE | 2024-01-25 07:35 | PC.NURSE ---
0718 203/112 0719 nitro admin 198/100 0722 post nitro 170/97. all symptoms resolved.
[2024-01-25 07:36] LABS: Basophils # 0.1 K/mm3 (0-0.2); Eosinophils # 0.3 K/mm3 (0.0-0.4); Hematocrit 43.7 % (37.0-47.0); Lymphocytes # 2.5 K/mm3 (0.7-4.5); Lymphocytes % 35.8 % (10-50); Mean Corpuscular HGB Conc 32.1 g/dL (31.8-35.4); Mean Corpuscular Hemoglobin 30.3 pg (27.0-31.2); Mean Corpuscular Volume 94.4 fl (81-99); Monocytes # 0.4 K/mm3 (0.1-1.0); Neutrophils # 3.7 K/mm3 (1.8-7.8); Neutrophils % 53.2 % (37.0-80.0); Platelet Count 255 K/mm3 (142-424); Red Blood Count 4.63 M/mm3 (4.20-5.40); Red Cell Distribution Width 14.4 % (11.5-17.5); White Blood Count 6.9 K/mm3 (4.8-10.8)
[2024-01-25 07:37] LABS: Albumin Level 4.2 g/dl (3.5-5.0); Chloride 108 mmol/L (98-107); Sodium 140 mmol/L (136-145)
[2024-01-25 07:38] LABS: Potassium 3.6 mmoL/L (3.5-5.1)
[2024-01-25 07:40] LABS: Alanine Aminotransferase 20 U/L (12-78); Albumin/Globulin Ratio 1.7 (1.1-1.8); Alkaline Phosphatase 67 U/L (38-126); Anion Gap 8.6 mEq/L (5-15); Aspartate Amino Transferase 22 U/L (14-36); Bilirubin,Total 0.7 mg/dl (0.2-1.3); Blood Urea Nitrogen 15 mg/dl (7-17); Carbon Dioxide 27 mmol/L (22.0-30.0); Creatinine Clearance Estimated 96 mL/min (50-200); Estimated Glomerular Filt Rate 89 ml/min (>60); GFR (African American) 107 ML/MIN (>60); Globulin 2.5 g/dL (1.3-3.2); Total Protein,Serum 6.7 g/dl (6.3-8.2)
[2024-01-25 07:41] LABS: Calcium 8.7 mg/dl (8.4-10.2); Chol/HDL Ratio 2.9 (1-3.5); Cholesterol 168 mg/dl (140-200); Glucose 115 mg/dl (74-100); HDL Cholesterol 57 mg/dl (40-60); Lipase 30 U/L (23-300); Magnesium 1.8 mg/dl (1.6-2.3); Triglycerides 67 mg/dl (30-150); VLDL Cholesterol 13 mg/dL (0-40)
[2024-01-25 07:52] LABS: Direct LDL Cholesterol 83.03 mg/dL (100-129)
[2024-01-25 07:53] LABS: NT Pro Brain Natriuretic Pep. 165 pg/mL (0-125)
[2024-01-25 07:55] LABS: Troponin I 0.04 ng/ml (0.00-0.034)
[2024-01-25 08:07] LABS: Hemoglobin A1C 4.8 % (4.0-6.0)
--- NOTE | 2024-01-25 08:32 | PC.NURSE ---
o/p with at this time.
--- NOTE | 2024-01-25 08:51 | ECG_ITS ---
APPROVED REPORT Exam: Resting ECG HR:52 bpm ECG Measurements Heart Rate 52 AXES NH 167 P 50 QRSd 82 QRS 46 QT 389 T 77 QTc 369 Conclusion SINUS BRADYCARDIA NONSPECIFIC T-WAVE ABNORMALITY BORDERLINE ECG Electronically signed by : IZAIAH CARPENTER, 01/26/2024 15:39:37
--- NOTE | 2024-01-25 09:21 | PC.NURSE ---
kayce called to verify that pt will be admitted to the floor, he is going to do elective cases first, then cath pt.
--- NOTE | 2024-01-25 09:23 | IR_ITS ---
APPROVED REPORT Patient Location: Inpatient Sharepoint Engineer: MAGGIE Thao RT (R) PROCEDURES Left heart catheterization Left ventriculogram Selective coronary angiogram INDICATION Non-ST elevation myocardial infarction, Coronary artery disease Informed consent was obtained prior to the procedure. COMPLICATIONS NONE Estimated Blood Loss: LESS THAN 10 ML TECHNIQUE One percent lidocaine used to anesthetize the right anterior aspect of the wrist. The right radial artery was accessed via the Seldinger technique. A 6 Alban[place] sheath was placed in the right radial artery. 2.5 mg of Verapamil, 800 mcg of nitroglycerin, 1mg Lidocaine and 5000 U Heparin were given through the arterial sheath. The papa catheter was also used to perform left heart catheterization, left ventriculogram and selective coronary angiogram. At the end of the procedure the sheath was removed good hemostasis was achieved using Traclet band, patient was transferred to the postop holding area in stable condition. ANGIOGRAPHIC RESULTS The left main artery Normal The left anterior descending artery Is normal throughout its entire course and is large caliber. 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 Plavix and aspirin for at least 1 year 2. LDL less than 55 to be achieved high intensity statin 3. Aggressive medical management with better control of hypertension which seemed to significantly precipitate the unstable angina/acute coronary syndrome 4. Recommend renal ultrasound given labile hypertension 5. Recommend sleep study 6. I do not recommend stenting the diagonal artery despite the severity of the stenosis. These branch vessels have a high long-term patency and stenting this vessel would require additional stenting in an otherwise widely patent and normal large caliber proximal LAD. Medical management is recommended with a high likelihood of favorable outcomes Electronically signed by : Damian Smith MD 01/25/2024 16:04:10
--- NOTE | 2024-01-25 09:38 | PC.NURSE ---
Report called to Kemi FUNEZ
[2024-01-25] MEDS: CLOPIDOGREL 300MG TABLET 300 MG PO (09:41)
--- NOTE | 2024-01-25 10:00 | P.CONCA_ITS ---
History of Present Illness History of Present Illness Consult date: 01/25/24 Requesting physician: Konrad Alvarez Consult reason: chest pain Chief complaint: chest pain, NSTEMI, HTN Additional Medical History:: 1. HTN 2. Tobacco use 3. Mild linear gastropathy by EGD, 11/15/2020 4. Rectosigmoid polyp with grade 1 internal hemorrhoids, colonoscopy,11/15/2020 5. Coronary calcium score of 0, 2020 A. Myoview, 2019, normal B. Echocardiogram, 2019, EF 55% History of present illness: 48 female history of hypertension, tobacco use presenting with chest pain. Patient states that chest pain started this morning, 01/24 shortly after she got to work at 6 AM. She keeps a blood pressure cuff at her desk, took her blood pressure, it was around 190 systolic. States that she has also been having cramping and discomfort in her left upper extremity this been going on for months, but it was also present this morning, so given the constellation of symptoms came to the emergency department. No nausea, vomiting, diaphoresis, shortness of breath, lower extremity swelling, recent sick contacts, recent travel, productive cough, fevers or chills, or any other concerns. No neurologic deficits.. History was obtained via conversation with patient. On arrival, patient hemodynamically stable, alert, oriented x4, appropriate, GCS 15, moving all extremities spontaneously, pupils equal and reactive to light. Full physical exam performed and significant for well-appearing female who appears mildly anxious, no acute distress. Normal cardiopulmonary exam other than hypertension with systolic greater than 200, diastolic greater than 110. Pulses equal and symmetric, no lower extremity edema. Neurologically intact. Differential includes hypertensive urgency, hypertensive emergency, ACS, CA, CHF, pneumothorax, microvascular coronary artery disease, among others. Patient was given aspirin 324 mg, nitroglycerin for symptomatic management and correction of underlying abnormalities. Patient placed on continuous cardiac monitoring and continuous pulse ox with initial blood pressure 220/112, heart rate 83, saturation 100% on room air. Independent interpretation of EKG shows sinus [id number] beats a minute with ST depressions throughout precordial leads without reciprocal change. MO 150, QRS 86, QTc 375. [place] normal. Workup independently interpreted and significant for nonactionable CBC or chemistry. Patient's troponin 0.04, BNP negative.. On independent interpretation of imaging, chest x-ray without acute cardiopulmonary airspace disease. See radiology read for full review of final results. Heart score 5. On reevaluation, patient's pain completely resolved with aspirin and nitroglycerin, closer to baseline blood pressure. Cardiology was consulted and case was discussed at length. Consult placed. Patient be given Plavix load. Because patient symptom-free, heparin was held after repeat EKG showed near resolution of ischemic changes. Hospital medicine was contacted and case was discussed at length, patient to be admitted for ACS, stable angina. Because patient high risk for clinical decompensation, deemed appropriate for inpatient admission. Results were relayed to patient who voiced understanding and patient was agreeable to inpatient admission and management. Patient was admitted to the hospital for further definitive management. The above per Dr. Phelan Cardiology consulted for evaluation. Chest x-ray unremarkable. Troponin mildly elevated at 0.04. EKG is sinus at [address]-T abnormalities in the inferolateral leads. Similar to tracings from stress test in 2020. Events as noted above confirmed with the patient. Plan for left heart catheterization today. [facility] Disclaimer: The information contained in this section may have been updated after the patient was seen, as this information can be updated by other users. Medical History Dizziness Numbness of left hand Sinus bradycardia HTN (hypertension) Left arm numbness Surgical History History of hysterectomy Family History (Updated 01/25/24 @ 10:20 by Aggie Florian RN) Mother Irregular heart beat Social History (Updated 01/25/24 @ 10:21 by Aggie Florian RN) Smoking Status: Current every day smoker tobacco type: cigarettes packs per day: 1 second hand exposure: No alcohol intake: current alcohol intake frequency: a few times a month substance use type: denies use current occupational status: employed Travel in the last 8 weeks: Inside the [place] household members: spouse housing: house current occupation: [employer] current occupational exposures/hazards: No caffeine: Yes Review of Systems Review of Systems Review of systems:: pertinent systems reviewed and negative unless documented below *Cardiovascular Cardiovascular: Reports chest pain Exam Data for Last 24 hours Vital signs and Labs for Last 24 Hours: Temp Pulse Resp BP Pulse Ox O2 Del Method 98.1 F 60 15 151/84 H 99 Room Air 01/25/24 07:20 01/25/24 09:00 01/25/24 09:00 01/25/24 09:00 01/25/24 09:00 01/25/24 08:30 Laboratory Results - last 24 hr 01/25/24 07:20: WBC 6.9, RBC 4.63, Hgb 14.0, Hct 43.7, MCV 94.4, MCH 30.3, MCHC 32.1, RDW 14.4, Plt Count 255, MPV 8.0, Neut % (Auto) 53.2, Lymph % (Auto) 35.8, [place] % (Auto) 6.0, Eos % (Auto) 4.0, Baso % (Auto) 1.0, Neut # (Auto) 3.7, Lymph # (Auto) 2.5, [place] # (Auto) 0.4, Eos # (Auto) 0.3, Baso # (Auto) 0.1, APTT 29.0, Sodium 140, Potassium 3.6, Chloride 108 H, Carbon Dioxide 27, Anion Gap 8.6, BUN 15, Creatinine 0.70, Estimated Creat Clear 96, Estimated GFR 89, Est GFR ( Amer) 107, Glucose 115 H, Hemoglobin A1c 4.8, Calcium 8.7, Magnesium 1.8, Total Bilirubin 0.7, AST 22, ALT 20, Alkaline Phosphatase 67, Troponin I 0.04 H, NT-Pro-B Natriuret Pep 165 H, Total Protein 6.7, Albumin 4.2, Globulin 2.5, Albumin/Globulin Ratio 1.7, Triglycerides 67, Cholesterol 168, LDL Cholesterol Direct 83.03 L, VLDL Cholesterol 13, HDL Cholesterol 57, Cholesterol/HDL Ratio 2.9, Lipase 30 I & O for Last 24 hours: Intake & Output 01/22/24 01/23/24 01/24/24 01/25/24 11:59 11:59 11:59 11:59 Weight 140 lb Constitutional Constitutional: no acute distress *Routine Respiratory Exam Respiratory: Present CTA bilaterally *Routine Cardiovascular Exam Cardiovascular: Present RRR *Routine Extremities Exam Extremities: Absent edema *Routine Neurological Exam Neurological: Present alert, oriented X3 and CN II-XII intact Meds Home Medications and Allergies Home Medications ?Medication ?Instructions ?Recorded ?Confirmed ?Type losartan 25 mg tablet 25 mg PO DAILY 03/11/23 01/25/24 History estradiol 2 mg tablet 2 mg PO DAILY 01/25/24 01/25/24 History New Prescriptions to Start Prescriptions: Allergies Allergy/AdvReac Type Severity Reaction Status Date / Time Sulfa (Sulfonamide Allergy Unknown Rash Verified 01/25/24 10:11 Antibiotics) [SULFA (SULFONAMIDE ANTIBIOTICS)] Assessment and Plan *Assessment and plan (1) Elevated troponin: Status: Acute Category: Medical Code(s): R79.89 - Other specified abnormal findings of blood chemistry (2) Hypertensive emergency: Status: Acute Category: Medical Code(s): I16.1 - Hypertensive emergency (3) HTN (hypertension): Status: Acute Qualifiers: Hypertension type: essential hypertension Qualified Code(s): I10 - Essential (primary) hypertension Category: Medical Code(s): I10 - Essential (primary) hypertension (4) Tobacco dependence syndrome: Status: Chronic Category: Medical Code(s): F17.200 - Nicotine dependence, unspecified, uncomplicated Plan 1. Chest pain with elevated troponin consistent with non-STEMI. -Aspirin and Plavix started -Plan for left heart catheterization -Echocardiogram ordered 2. Hypertensive emergency -Adjust medications for better blood pressure control -Consider renal angiogram at time of left heart catheterization 3. Tobacco use -Cessation 4. LDL 83
--- NOTE | 2024-01-25 10:08 | PC.NURSE ---
Pt ARRIVED TO FLOOR VIA WHEELCHAIR @[phone]
[2024-01-25] MEDS: IRBESARTAN 75MG TABLET 75 MG PO (11:26)
[2024-01-25 11:35] LABS: Troponin I 0.08 ng/ml (0.00-0.034)
[2024-01-25 14:01] LABS: Troponin I 0.11 ng/ml (0.00-0.034)
--- NOTE | 2024-01-25 14:36 | CA_ITS ---
APPROVED REPORT EXAM: Comprehensive 2D, Doppler, and color-flow Echocardiogram Pole Lift Operator: Ira Patel RVT Ht: 5 ft 5 in Wt: 145lbs BSA: 1.73 BP: 151/84 mmHg Indications: NSTEMI,ELEVATED TROP,HTN,BRADYCARDIA,CP,SMOKER 2D Dimensions Left Atrium 3.05 cm F: 2.7 - 3.8 LA Volume 40.80 mL RVID Base (AP4) 2.70 cm (M/F) 2.5-4.1 LA Volume Index 23.58 mL/m2 (M/F) 16-34 LVOT 2.13 cm (M/F) 1.5-2.5 EF AP4 56.60 % GL Strain -22.2 % M-Mode Dimensions RVDd 3.19 cm (0.9-2.6) LVDd 5.02 cm (3.5-5.7) Ao Diam 2.84 cm (2.0-3.7) LVDs 3.04 cm (3.5-5.7) IVSd 0.84 cm (0.6-1.1) PWd 0.57 cm (0.6-1.1) EF (Teich) 69.70% FS 39.40% EDV (Teich) 119.30 mL TAPSE 2.83 (<1.7) ESV (Teich) 36.20 mL LV Diastology E Decel Time 214 (160-240 msec) E/A Ratio 1.3 MED E' 7.6 (>= 7 cm/sec) E'/MED E' Ratio 11.92 (<= 14) LAT E' 9.2 (>= 10 cm/sec) E/LAT E' Ratio 9.85 (<= 14) Aortic Valve LVOT Max 91.0 (70-110 cm/s) MI Index 1.30 cm2/m2 LVOT VTI 18.14 cm AoV Peak Peyman. 123.0 (50-130 cm/s) AO Peak GR. 5.10 mmHg AO Mean GR. 3.50 (<5 mmHg) AO VTI 28.7 (18-25 cm) MI (VTI) 2.25 (2.5-4.5 cm2) Mitral Valve MV E Max Peyman. 91.0 (40-130 cm/s) MV A Velocity 70.0 (40-130 cm/s) E/A Ratio 1.29 MV Decel. Time 214 (160-240 ms) Tricuspid Valve TR P. Velocity 282.00 cm/s RAP Estimate 10.00 mmHg RVSP 41.90 mmHg Left Ventricle The left ventricle is normal size. The left ventricular systolic function is normal. The left ventricular ejection fraction is within the normal range. There is increase in LV wall thickness. There is normal LV segmental wall motion. The left ventricular diastolic function is normal. LVEF is 55%. Right Ventricle Right ventricle is mildly dilated. The right ventricular systolic function is normal. Atria Left atrium is mildly dilated. Right atrium is mildly dilated. There is no Doppler evidence of interatrial shunt. Aortic Valve The aortic valve opens well. There is no aortic valvular stenosis. Trace aortic regurgitation. Mitral Valve The mitral valve is normal in structure. No evidence of mitral valve stenosis. Mild mitral regurgitation. Tricuspid Valve The tricuspid valve leaflets are thin and pliable. Trace tricuspid regurgitation. There is insufficient TR jet to estimate RVSP. Pulmonic Valve The pulmonary valve is normal in structure. Trace pulmonic regurgitation. Great Vessels The aortic root is normal in size. The ascending aorta is not well visualized. IVC is normal in size and collapses >50% with inspiration. Pericardium Trivial, posterior pericardial effusion is present. No echo indications of tamponade. Other Information Study Quality: Fair Conclusion Normal biventricular systolic function. Mild RV dilation. Mild biatrial dilation. Mild MR. Trivial, posterior pericardial effusion is present. No echo indications of tamponade. Electronically signed by : Erica Vaca MD 01/27/2024 13:01:48
[2024-01-25] MEDS: VERAPAMIL 2.5MG/ML 2ML VIAL 2.5 MG IV (15:40)
[2024-01-25] MEDS: FENTANYL 100MCG/2ML VIAL 25 MCG IV (15:40)
[2024-01-25] MEDS: MIDAZOLAM HCL 1MG/1ML 5ML VIAL 1 MG IV (15:40)
[2024-01-25] MEDS: HEPARIN 1,000 UNITS/ML 10ML VIAL (CATH LAB) 10000 UNIT IV (15:40)
[2024-01-25] MEDS: LIDOCAINE 1% 10ML MDV 20 ML IJ (15:40)
[2024-01-25] MEDS: NITROGLYCERIN 800MCG/8ML SYR (CATH LAB) 800 MCG IA (15:41)
[2024-01-25] MEDS: 0.9 % SODIUM CHLORIDE 500 ML 25 ML IV (15:41)
[2024-01-25] MEDS: HEPARIN 1,000 UNITS/500ML NS (CATH LAB) 3000 UNIT IV (15:42)
[2024-01-25] MEDS: IOPAMIDOL-370 (76%);100ML BOTTLE 80 ML IV (16:16)
--- NOTE | 2024-01-25 16:32 | P.HP_ITS ---
History of Present Illness *Admission Date: 01/25/24 *Reason for visit:: chest pain *History of present illness: Ms. Corcoran is a pleasant 48-year-old female with history of hypertension, smoking history, who presented to the ER with chest pain. States she has been having some left-sided arm pain for couple weeks that may have had some improvement with massage. Woke up today and had some chest pressure in the center of her chest. Took her blood pressure and found her systolic to be a pproximately 190. Came to the ER for evaluation. Denies nausea, vomiting, shortness of breath, diaphoresis, confusion or weakness. On arrival, systolic blood pressure above 200. Initial workup with a positive troponin of 0.[address] depressions in V1 through 4. Given aspirin and nitro, blood pressure improved and chest pain resolved. Cardiology consulted, recommended admission for further management and heart cath. After arriving to the floor, patient feeling more comfortable. Chest pain-free at this time. Stable on room air. [facility] Disclaimer: The information contained in this section may have been updated after the patient was seen, as this information can be updated by other users. Medical History Dizziness Numbness of left hand Sinus bradycardia HTN (hypertension) Left arm numbness Surgical History History of hysterectomy Family History Irregular heart beat Mother Social History Smoking Status: Current every day smoker tobacco type: cigarettes packs per day: 1 second hand exposure: No alcohol intake: current alcohol intake frequency: a few times a month substance use type: denies use current occupational status: employed Travel in the last 8 weeks: Inside the [place] household members: spouse housing: house current occupation: [employer] current occupational exposures/hazards: No caffeine: Yes Review of Systems Review of Systems Review of systems (narrative): 14 point review of systems performed, pertinent positives and negatives as per HPI Meds Home Medications and Allergies Home Medications ?Medication ?Instructions ?Recorded ?Confirmed ?Type losartan 25 mg tablet 25 mg PO DAILY 03/11/23 01/25/24 History estradiol 2 mg tablet 2 mg PO DAILY 01/25/24 01/25/24 History New Prescriptions to Start Prescriptions: Allergies Allergy/AdvReac Type Severity Reaction Status Date / Time Sulfa (Sulfonamide Allergy Unknown Rash Verified 01/25/24 10:11 Antibiotics) [SULFA (SULFONAMIDE ANTIBIOTICS)] Exam Data for Last 24 hours Vital signs and Labs for Last 24 Hours: Temp Pulse Resp BP Pulse Ox O2 Del Method 98.0 F 53 L 20 125/70 97 Room Air 01/25/24 12:00 01/25/24 16:15 01/25/24 16:15 01/25/24 16:15 01/25/24 16:15 01/25/24 16:15 Laboratory Results - last 24 hr 01/25/24 07:20: WBC 6.9, RBC 4.63, Hgb 14.0, Hct 43.7, MCV 94.4, MCH 30.3, MCHC 32.1, RDW 14.4, Plt Count 255, MPV 8.0, Neut % (Auto) 53.2, Lymph % (Auto) 35.8, [place] % (Auto) 6.0, Eos % (Auto) 4.0, Baso % (Auto) 1.0, Neut # (Auto) 3.7, Lymph # (Auto) 2.5, [place] # (Auto) 0.4, Eos # (Auto) 0.3, Baso # (Auto) 0.1, APTT 29.0, Sodium 140, Potassium 3.6, Chloride 108 H, Carbon Dioxide 27, Anion Gap 8.6, BUN 15, Creatinine 0.70, Estimated Creat Clear 96, Estimated GFR 89, Est GFR ( Amer) 107, Glucose 115 H, Hemoglobin A1c 4.8, Calcium 8.7, Magnesium 1.8, Total Bilirubin 0.7, AST 22, ALT 20, Alkaline Phosphatase 67, Troponin I 0.04 H, NT-Pro-B Natriuret Pep 165 H, Total Protein 6.7, Albumin 4.2, Globulin 2.5, Albumin/Globulin Ratio 1.7, Triglycerides 67, Cholesterol 168, LDL Cholesterol Direct 83.03 L, VLDL Cholesterol 13, HDL Cholesterol 57, Cholesterol/HDL Ratio 2.9, Lipase 30 01/25/24 11:00: Troponin I 0.08 H 01/25/24 13:30: Troponin I 0.11 H I & O for Last 24 hours: Intake & Output 01/22/24 01/23/24 01/24/24 01/25/24 23:59 23:59 23:59 23:59 Output Total 0 / 0 Balance 0 / 0 Weight 65.828 kg Constitutional Constitutional: no acute distress, average body habitus and cooperative *Routine HEENT Exam Head: Present normocephalic Eye: Present EOMI and PERRL ENT: Present mucous membranes moist *Routine Neck Exam Neck: Present supple; Absent lymphadenopathy *Routine Respiratory Exam Respiratory: Present CTA bilaterally; Absent rhonchi, wheezes or crackles *Routine Cardiovascular Exam Cardiovascular: Present RRR *Routine Abdominal Exam Abdominal: Present soft and normoactive bowel sounds; Absent tenderness *Routine Rectal Exam Rectal:: deferred *Routine Genitalia Exam Genitalia:: deferred *Routine Extremities Exam Extremities: Absent cyanosis, clubbing or edema *Routine Skin Exam Skin: Present warm; Absent rash *Routine Neurological Exam Neurological: Present alert, oriented X3 and moving all extremities; Absent altered mental status Assessment and Plan *Assessment and plan (1) Accelerated hypertension: Status: Acute Category: Medical Code(s): I10 - Essential (primary) hypertension (2) NSTEMI (non-ST elevated myocardial infarction): Status: Acute Category: Medical Code(s): I21.4 - Non-ST elevation (NSTEMI) myocardial infarction (3) Tobacco dependence syndrome: Status: Chronic Category: Medical Code(s): F17.200 - Nicotine dependence, unspecified, uncomplicated Plan 48-year-old female who presented with chest pain and elevated blood pressure with systolic of 200. Found to have elevation of troponin. Discussed case with ER physician, request admission for evaluation by cardiology and further management of blood pressure. Initiated on irbesartan. Cardiology consulted, planning for left heart cath given ST depressions in V1 through 4 and chest pain today. Problems addressed as follows: Accelerated hypertension NSTEMI -Going for heart cath, discussed case with cardiology, recommend increasing irbesartan for better blood pressure control. Concerned that troponin leak is related to uncontrolled hypertension. - Loaded with aspirin 324 mg once and Plavix 300 mg once. -Continue irbesartan 75 mg daily, first dose given on admission. -Further management pending heart cath -Will consider renal artery duplex. -Troponin detectable at 0.04, repeat at 0.08. Initial blood pressure systolics over 200, improved to 144/67 after nitroglycerin in the ER. - Kidney function and electrolytes nonactionable. Cholesterol elevated 83. -Repeat CBC, CMP, magnesium ordered for the morning. -Chest x-ray per my review with no acute consolidation or cardiopulmonary findings. -EKG showing ST depressions in V1 through 4 on my evaluation Tobacco use disorder: Nicotine patch during admission. Full code Regular diet Heparinized in Mechanical Maintenance Technician
--- NOTE | 2024-01-25 18:25 | PC.NURSE ---
pt has done well since arriving to floor. no c/o pain. vss. cath site to rt wrist. radial band still in place at this time. pt sitting up in bed on phone with at bedside. no concerns or needs at this time.
--- NOTE | 2024-01-25 18:52 | PC.NURSE ---
radial band off
[2024-01-25] MEDS: ATORVASTATIN 40MG TABLET 40 MG PO (20:06)
[2024-01-26] VITALS: BP 135/70; PULSE 50; PULSE 58; RESP 16; TEMP 36.7; O2SAT 93
[2024-01-26 04:00] VITALS: BP 135/72; PULSE 50; PULSE 54; RESP 16; TEMP 37; O2SAT 99; BMI 24.7
--- NOTE | 2024-01-26 05:06 | PC.NURSE ---
Patient is A&OX4 and has tolerated room air. Lung sounds clear throughout and bowel sounds active in all quadrants. She has denies any chest pain or shortness of breath. Dressing over right radial cath site is clean dry and intact. Pt has ambulated around room independently. She is currently asleep and has no complaints at this time. Call light within reach.
--- NOTE | 2024-01-26 07:21 | P.DS_ITS ---
General Admission date:: 01/25/24 Discharge date: 01/26/24 HPI HPI HPI: Ms. Corcoran is a pleasant 48-year-old female with history of hypertension, smoking history, who presented to the ER with chest pain. States she has been having some left-sided arm pain for couple weeks that may have had some improvement with massage. Woke up today and had some chest pressure in the center of her chest. Took her blood pressure and found her systolic to be approximately 190. Came to the ER for evaluation. Denies nausea, vomiting, shortness of breath, diaphoresis, confusion or weakness. On arrival, systolic blood pressure above 200. Initial workup with a positive troponin of 0.[address] depressions in V1 through 4. Given aspirin and nitro, blood pressure improved and chest pain resolved. Cardiology consulted, recommended admission for further management and heart cath. After arriving to the floor, patient feeling more comfortable. Chest pain-free at this time. Stable on room air. Hospital Course Hospital Course Hospital Course: 48-year-old female who presented with chest pain and elevated blood pressure with systolic of 200. Found to have elevation of troponin. Discussed case with ER physician, request admission for evaluation by cardiology and further management of blood pressure. Initiated on irbesartan. Cardiology consulted, taken for left heart cath given her ST depressions in V1 through 4. No stents placed, recommend medical management. See problems below for full details. Stable to discharge home. Problems addressed as follows: Accelerated hypertension NSTEMI -Presented with chest pain, elevated blood pressure, found to have ST depressions on EKG. Initial troponin 0.04, increased to 0.11. Loaded with aspirin 324 mg once and Plavix 300 mg once. Administered 75 mg irbesartan once. Will continue this daily. Taken for left heart cath with following findings: Severe disease and a 2.75 mm ostial diagonal artery with all remaining arteries widely patent and free of angiographic evidence of atherosclerosis Tortuous vessels consistent with hypertensive vasculopathy Hyperdynamic ventricle consistent with hypertensive heart disease; Elevated LVEDP PLAN 1. Plavix and aspirin for at least 1 year, continue 81 mg aspirin and 75 mg Plavix daily 2. LDL less than 55 to be achieved high intensity statin; Lipitor 40 mg nightly 3. Aggressive medical management with better control of hypertension which seemed to significantly precipitate the unstable angina/acute coronary syndrome; irbesartan 75 mg daily 4. Recommend renal ultrasound given labile hypertension, will obtain as an outpatient due to unavailability of ultrasound at time of patient's admission. 5. Recommend sleep study, will defer to cardiology to pursue as an outpatient. Blood pressure showing improvement. 151/77 on morning of discharge prior to medications. Kidney function normal with BUN 13, creatinine 0.7. Tobacco use disorder: Extensive discussion about smoking cessation. Nicotine patch 14 mg daily prescribed. Counseled on benefits of smoking cessation and use of adjunct therapy. Patient to consider picking this up. Exam Data for Last 24 hours Vital signs and Labs for Last 24 Hours: Temp Pulse Resp BP Pulse Ox O2 Del Method 98.6 F 54 L 16 135/72 99 Room Air 01/26/24 04:00 01/26/24 04:00 01/26/24 04:00 01/26/24 04:00 01/26/24 04:00 01/26/24 06:45 Laboratory Results - last 24 hr 01/25/24 07:20: WBC 6.9, RBC 4.63, Hgb 14.0, Hct 43.7, MCV 94.4, MCH 30.3, MCHC 32.1, RDW 14.4, Plt Count 255, MPV 8.0, Neut % (Auto) 53.2, Lymph % (Auto) 35.8, [place] % (Auto) 6.0, Eos % (Auto) 4.0, Baso % (Auto) 1.0, Neut # (Auto) 3.7, Lymph # (Auto) 2.5, [place] # (Auto) 0.4, Eos # (Auto) 0.3, Baso # (Auto) 0.1, APTT 29.0, Sodium 140, Potassium 3.6, Chloride 108 H, Carbon Dioxide 27, Anion Gap 8.6, BUN 15, Creatinine 0.70, Estimated Creat Clear 96, Estimated GFR 89, Est GFR ( Amer) 107, Glucose 115 H, Hemoglobin A1c 4.8, Calcium 8.7, Magnesium 1.8, Total Bilirubin 0.7, AST 22, ALT 20, Alkaline Phosphatase 67, Troponin I 0.04 H, NT-Pro-B Natriuret Pep 165 H, Total Protein 6.7, Albumin 4.2, Globulin 2.5, Albumin/Globulin Ratio 1.7, Triglycerides 67, Cholesterol 168, LDL Cholesterol Direct 83.03 L, VLDL Cholesterol 13, HDL Cholesterol 57, Cholesterol/HDL Ratio 2.9, Lipase 30 01/25/24 11:00: Troponin I 0.08 H 01/25/24 13:30: Troponin I 0.11 H I & O for Last 24 hours: Intake & Output 01/23/24 01/24/24 01/25/24 01/26/24 23:59 23:59 23:59 23:59 Intake Total 680 / 680 Output Total 0 / 0 0 / 0 Balance 680 / 680 0 / 0 Weight 65.828 kg 67.54 kg Constitutional Constitutional: no acute distress and cooperative *Routine HEENT Exam Head: Present normocephalic Eye: Present EOMI and PERRL ENT: Present mucous membranes moist *Routine Neck Exam Neck: Present supple; Absent lymphadenopathy *Routine Respiratory Exam Respiratory: Present CTA bilaterally; Absent rhonchi, wheezes or crackles *Routine Cardiovascular Exam Cardiovascular: Present RRR *Routine Abdominal Exam Abdominal: Present soft and normoactive bowel sounds; Absent tenderness *Routine Rectal Exam Patient deferred: visual exam *Routine Exam Patient deferred: external exam *Routine Extremities Exam Extremities: Absent cyanosis, clubbing or edema *Routine Skin Exam Skin: Present warm; Absent rash *Routine Neurological Exam Neurological: Present alert, oriented X3 and moving all extremities; Absent altered mental status Results Data Completed and Pending Labs on day of discharge: Labs from last 24 hours 01/25/24 01/25/24 01/25/24 13:30 11:00 07:20 WBC 6.9 RBC 4.63 Hgb 14.0 Hct 43.7 MCV 94.4 MCH 30.3 MCHC 32.1 RDW 14.4 Plt Count 255 MPV 8.0 Neut % (Auto) 53.2 Lymph % (Auto) 35.8 [place] % (Auto) 6.0 Eos % (Auto) 4.0 Baso % (Auto) 1.0 Neut # (Auto) 3.7 Lymph # (Auto) 2.5 [place] # (Auto) 0.4 Eos # (Auto) 0.3 Baso # (Auto) 0.1 APTT 29.0 Sodium 140 Potassium 3.6 Chloride 108 H Carbon Dioxide 27 Anion Gap 8.6 BUN 15 Creatinine 0.70 Estimated Creat Clear 96 Estimated GFR 89 Est GFR ( Amer) 107 Glucose 115 H Hemoglobin A1c 4.8 Calcium 8.7 Magnesium 1.8 Total Bilirubin 0.7 AST 22 ALT 20 Alkaline Phosphatase 67 Troponin I 0.11 H 0.08 H 0.04 H NT-Pro-B Natriuret Pep 165 H Total Protein 6.7 Albumin 4.2 Globulin 2.5 Albumin/Globulin Ratio 1.7 Triglycerides 67 Cholesterol 168 LDL Cholesterol Direct 83.03 L VLDL Cholesterol 13 HDL Cholesterol 57 Cholesterol/HDL Ratio 2.9 Lipase 30 DS: Diagnosis Discharge Diagnosis (1) Accelerated hypertension: Status: Acute Code(s): I10 - Essential (primary) hypertension (2) NSTEMI (non-ST elevated myocardial infarction): Status: Acute Code(s): I21.4 - Non-ST elevation (NSTEMI) myocardial infarction (3) Tobacco dependence syndrome: Status: Chronic Code(s): F17.200 - Nicotine dependence, unspecified, uncomplicated Meds Home Medications and Allergies Home Medications ?Medication ?Instructions ?Recorded ?Confirmed ?Type estradiol 2 mg tablet 2 mg PO DAILY 01/25/24 01/25/24 History aspirin 81 mg tablet,delayed 81 mg PO DAILY #30 tabs 01/26/24 Rx release atorvastatin 40 mg tablet 40 mg PO HS 30 days #30 tabs 01/26/24 Rx clopidogrel 75 mg tablet (Plavix) 75 mg PO DAILY #30 tabs 01/26/24 Rx irbesartan 75 mg tablet 75 mg PO DAILY 30 days #30 tabs 01/26/24 Rx nicotine 14 mg/24 hr daily 1 patch transdermal Q24H #28 ea 01/26/24 Rx transdermal patch New Prescriptions to Start Prescriptions: Konrad Potter atorvastatin Konrad Alvarez clopidogrel [Plavix] Konrad Alvarez irbesartan Konrad Alvarez nicotine Konrad Alvarze Allergies Allergy/AdvReac Type Severity Reaction Status Date / Time Sulfa (Sulfonamide Allergy Unknown Rash Verified 01/25/24 10:11 Antibiotics) [SULFA (SULFONAMIDE ANTIBIOTICS)] Discharge Plan Disposition Patient Disposition: Home, Self-Care Condition: Good Follow up Plan Follow up with: Angel Gonzalez PA [Physician [employer] P[employer] Offbearer] - 01/30/24 1:15 pm Prescriptions/Medication Reconciliation: New atorvastatin 40 mg Tablet 40 mg PO HS 30 Days Qty: 30 0RF irbesartan 75 mg Tablet 75 mg PO DAILY 30 Days Qty: 30 0RF aspirin 81 mg tablet,delayed release (DR/EC) 81 mg PO DAILY Qty: 30 0RF clopidogrel [Plavix] 75 mg tablet 75 mg PO DAILY Qty: 30 0RF nicotine 14 mg/24 hr patch 24 hour 1 patch transdermal Q24H Qty: 28 0RF Continued estradiol 2 mg tablet 2 mg PO DAILY Discontinued losartan 25 mg tablet 25 mg PO DAILY Problem Reconciliation Problems Reviewed?: Yes Patient Discharge Instructions ACTIVITY: Continue current activity DIET: continue same diet Stand Alone Forms: [facility] Work Release Patient Instructions: DI for Cardiac Catheterization, DI for Surgical Site Infection Print Language: Croatian Providers Primary Care Provider: Vy Corcoran Admit Provider: Konrad Alvarez Attending Provider: Konrad Alvarez
[2024-01-26 07:24] VITALS: BP 151/77; PULSE 77; RESP 18; TEMP 36.4; O2SAT 99
[2024-01-26 07:28] LABS: Basophils % 0.6 % (0.1-2.0); Eosinophils # 0.2 K/mm3 (0.0-0.4); Eosinophils % 3.5 % (0.1-12.0); Lymphocytes # 2.3 K/mm3 (0.7-4.5); Lymphocytes % 38.5 % (10-50); Mean Corpuscular HGB Conc 36.7 g/dL (31.8-35.4); Mean Corpuscular Volume 95.3 fl (81-99); Mean Platelet Volume 8.3 fl (7.4-10.4); Monocytes # 0.3 K/mm3 (0.1-1.0); Monocytes % 5.5 % (1.7-9.3); Neutrophils # 3.1 K/mm3 (1.8-7.8); Neutrophils % 51.9 % (37.0-80.0); Platelet Count 204 K/mm3 (142-424); Red Blood Count 3.56 M/mm3 (4.20-5.40); Red Cell Distribution Width 14.7 % (11.5-17.5); White Blood Count 5.9 K/mm3 (4.8-10.8)
[2024-01-26 07:41] LABS: Hemoglobin 12.5 g/dL (12.2-16.2)
[2024-01-26 07:45] LABS: Alanine Aminotransferase 16 U/L (12-78); Albumin Level 3.4 g/dl (3.5-5.0); Albumin/Globulin Ratio 1.4 (1.1-1.8); Alkaline Phosphatase 51 U/L (38-126); Anion Gap 5.2 mEq/L (5-15); Aspartate Amino Transferase 21 U/L (14-36); Bilirubin,Total 0.4 mg/dl (0.2-1.3); Blood Urea Nitrogen 13 mg/dl (7-17); Calcium 8.6 mg/dl (8.4-10.2); Carbon Dioxide 28 mmol/L (22.0-30.0); Chloride 110 mmol/L (98-107); Creatinine Clearance Estimated 103 mL/min (50-200); Estimated Glomerular Filt Rate 89 ml/min (>60); GFR (African American) 107 ML/MIN (>60); Globulin 2.4 g/dL (1.3-3.2); Glucose 82 mg/dl (74-100); Potassium 4.2 mmoL/L (3.5-5.1); Sodium 139 mmol/L (136-145); Total Protein,Serum 5.8 g/dl (6.3-8.2)
[2024-01-26 08:00] VITALS: PULSE 60
[2024-01-26] MEDS: IRBESARTAN 75MG TABLET 75 MG PO (09:08)
[2024-01-26] MEDS: ASPIRIN EC 81MG TABLET 81 MG PO (09:08)
[2024-01-26] MEDS: CLOPIDOGREL 75MG TAB 75 MG PO (09:08)
--- NOTE | 2024-01-28 13:57 | CARE MANAGER ---
Contacted patient related to hospital discharge. She states she is doing well. She has all her new medication and stopped the one as instructed. She is aware of follow up appointment. DEE DEE De Souza
== END 2024-01-26 09:19 | disposition home or self-care (01) ==
LOC: ER 07:42 → 2ND 09:26
PROVIDERS: Internal Medicine; Admitting Provider Internal Medicine Adolescent Medicine; Emergency Provider Emergency Medicine; PCP Nurse Practitioner Family; Visit Provider Internal Medicine Adolescent Medicine
DX: I16.1 Hypertensive emergency; I10 Essential (primary) hypertension; I21.4 Non-ST elevation (NSTEMI) myocardial infarction; F17.210 Nicotine dependence, cigarettes, uncomplicated; R00.1 Bradycardia, unspecified; Z79.899 Other long term (current) drug therapy
CPT/HCPCS: 36415; 71045; 80053; 80061; 83036; 83690; 83735; 83880; 84484; 85025; 85730; 93005; 93306; 93458; 99152; 99291; C1725; C1769; G0378; J1644; J2250; J3010; Q9967

== ENCOUNTER 2024-02-20 10:25 | Day surgery (SDC) | payer BC, SELFPAY ==
[2024-02-15 14:20] VITALS: BMI 24.7
[2024-02-20 10:43] VITALS: BP 181/86; PULSE 48; RESP 16; TEMP 36.2; O2SAT 100
--- NOTE | 2024-02-20 10:49 | P.PNANES_ITS ---
[facility] Disclaimer: The information contained in this section may have been updated after the patient was seen, as this information can be updated by other users. Medical History Dizziness Numbness of left hand Sinus bradycardia HTN (hypertension) Left arm numbness Surgical History History of hysterectomy Family History Irregular heart beat Mother Social History (Updated 02/15/24 @ 14:22 by Chinyere Esqueda RN) Smoking Status: Former smoker tobacco type: cigarettes packs per day: 1 second hand exposure: No alcohol intake: never substance use type: denies use current occupational status: employed Travel in the last 8 weeks: None household members: spouse housing: house current occupation: [employer] current occupational exposures/hazards: No caffeine: No [facility] Anesthesia Checklist Patient Identification Patient Identification: Arm Band, Family and Verbal (Name & ) Structural Data Admitted From: Home Planned Operative Procedure/s: Colonoscopy Consent for Planned Operative Procedure(s) Verified: Yes Verified Documents: Surgical Consent and History and Physical NPO Status Verified Time NPO: 05:30 Chart Verification Results Verified: CBC, BMP, ECG and Chest Xray Additional verifications Patient : No Anesthesia Reactions: No Cardiovascular Assessment Heart Sounds: S1 & S2 Pulse Rhythm: Irregular Peripheral Edema: No Airway Assessment Mallampati Score:: Class II C-Spine Mobility Assessed: Yes (FROM demonstrated) TMJ Mobility Assessed: Yes Dentition: Good Dentition (Nothing loose per pt.) Neurological Assessment Level of Consciousness: Awake, Alert, Appropriate and Follows Commands Hx Seizures: No Numbness or tingling in extremities: No Anesthesia Plan Anesthesia Risk discussed: Yes Anesthesia Plan: Verified ASA Class: III Anesthesia Type: MAC
[2024-02-20] MEDS: LACTATED RINGERS 1000ML 1,000 ML 25 ML IV (10:51)
[2024-02-20 11:01] VITALS: O2SAT 100
--- NOTE | 2024-02-20 11:25 | HMH.SCOPE ---
Procedure: Date: 02/20/24 Patient Date of :: 1975 Procedure Performed:: Colonoscopy Indications:: The patient is a 48-year-old who presents for surveillance colonoscopy for a history of polyps. The patient had a high risk colorectal cancer screening colonoscopy 3 years ago for a family history of colon cancer in a first-degree relative (sister). The patient had an adenomatous polyp removed on the last colonoscopy. Performing Provider:: Tay Meredith MD Referring Provider:: Vy Corcoran APRN Sedation:: See RN records Procedure:: After placing the patient in the left lateral decubitus position, the colonoscopy was gently inserted into the rectum and under direct visualization advanced to the cecum which was identified by transillumination in the right lower quadrant, identification of the ileocecal valve, appendiceal orifice, and cecal strap. Color, texture, mucosa, and anatomy of the colon were carefully examined with the scope. Findings:: The quality of the bowel preparation was excellent. The entire examined colon appeared normal. There were small internal hemorrhoids seen on retroflexion view of the rectum. Impression: Normal appearing colon Recommendations:: Will recommend a repeat colonoscopy in 5 years for surveillance purposes Complications:: None Estimated blood obtained (mL): 0 Colonoscopy Component Colonoscopy Component Was a colonoscopy performed during today's procedure?: Yes Recommended follow up colonoscopy of at least 10 years?: Yes
[2024-02-20 11:26] VITALS: BP 128/68; PULSE 62; RESP 18; TEMP 36.3; O2SAT 99
[2024-02-20 11:36] VITALS: BP 137/84; PULSE 60; RESP 18; O2SAT 99
[2024-02-20 11:46] VITALS: BP 136/75; PULSE 51; RESP 18; O2SAT 100
[2024-02-20 11:51] VITALS: BP 155/77; PULSE 46; RESP 18; O2SAT 100
== END 2024-02-20 11:56 | disposition home or self-care (01) ==
PROVIDERS: PCP Nurse Practitioner Family; Visit Provider Internal Medicine
PROC: 0DJD8ZZ Inspection of Lower Intestinal Tract, Via Natural or Artificial Opening Endoscopic (ICD-10-PCS; CPT 45378; principal; 2024-02-20 11:30)
DX: Z86.010 Personal history of colon polyps (principal); Z80.0 Family history of malignant neoplasm of digestive organs; K64.8 Other hemorrhoids
CPT/HCPCS: 45378; J7120

== ENCOUNTER 2024-03-18 15:12 | Outpatient (CLI) | payer BC, SELFPAY ==
[2024-03-18 15:45] LABS: Chloride 104 mmol/L (98-107); Potassium 3.8 mmoL/L (3.5-5.1); Sodium 137 mmol/L (136-145)
[2024-03-18 15:48] LABS: Anion Gap 7.8 mEq/L (5-15); Carbon Dioxide 29 mmol/L (22.0-30.0); Glucose 103 mg/dl (74-100)
[2024-03-18 15:53] LABS: Blood Urea Nitrogen 12 mg/dl (7-17); Estimated Glomerular Filt Rate 106 ml/min (>60); GFR (African American) 128 ML/MIN (>60)
== END 2024-03-18 23:59 | disposition home or self-care (01) ==
LOC: LAB 15:12
PROVIDERS: PCP Nurse Practitioner Family; Visit Provider Physician Assistant
DX: E78.49 Other hyperlipidemia (principal); I25.10 Atherosclerotic heart disease of native coronary artery without angina pectoris; F17.200 Nicotine dependence, unspecified, uncomplicated; R00.1 Bradycardia, unspecified
CPT/HCPCS: 36415; 80048

== ENCOUNTER 2024-06-09 17:29 | Emergency (ER) | payer BC, SELFPAY ==
[2024-06-09 17:40] VITALS: BP 174/83; PULSE 75; RESP 19; TEMP 36.8; O2SAT 98; BMI 26.4
[2024-06-09] MEDS: LIDOCAINE 1% PF 2ML AMPULE 2 ML SUBCUT (17:59)
--- NOTE | 2024-06-09 18:05 | PC.NURSE ---
PATIENT GIVEN TDAP IN LEFT DELTOID AT THIS TIME, UNABLE TO CHART IN AUG. LOT #[id number], EXP.
--- NOTE | 2024-06-09 18:09 | ED_ITS ---
Discharge Plan Disposition Patient Disposition: Home, Self-Care Condition: Good Prescriptions Prescriptions: New amoxicillin-pot clavulanate 875-125 mg Tablet 1 tab PO Q12H 7 Days Qty: 14 0RF No Action clopidogrel [Plavix] 75 mg tablet 75 mg PO DAILY Qty: 30 6RF atorvastatin 40 mg tablet 40 mg PO HS Qty: 30 5RF irbesartan 150 mg tablet 150 mg PO DAILY Qty: 90 2RF estradiol 2 mg tablet 2 mg PO DAILY aspirin 81 mg tablet,delayed release (DR/EC) 81 mg PO DAILY Qty: 30 0RF Referrals Follow up/Referrals: Vy Corcoran APRN [Primary Care Provider] - See instructions Activity Restrictions/Add. Instructions Additional Instructions/Restrictions: Suture instructions: ?You have required stitches today. Please read the following instructions so you know how to care for them: ?1. Keep wound area dry for the first 24 hours. 2?? May clean gently with mild soap and water, after 48 hours to prevent crusting over suture knots. 3. You may shower if your provider gives permission but do not take a bath until the skin is healed.. 4. Never leave a wet dressing or Band-Aid on your stitches as this allows bacteria to reach the area and may cause infection. Band-aids can cause the wound to sweat and not recommended to wear for long periods of time Watch for signs of infection: ? Increasing redness, tenderness or warmth around the suture site ? Unusual swelling around the site ? Appearance of pus around each suture or any red streaks ? Fever If you develop any of the above signs or symptoms of infection, Follow up with Family Physician immediately 5. Suture removal in _7-10___days 6. Return to [facility] or follow up with family doctor for removal. This can be done by any medical provider dur?ing regular hours on Sunday through Sunday, by appointment. Clinical Impressions Clinical Impression: Laceration Instructions Patient Instructions: DI for Laceration Repair -- Simple, Amoxicillin and Clavulanic Acid Print Language Print Language: Kyrgyz Discharge ED Provider: Edith Lowry [facility] [place] Stated complaint: AO06/09/24 la to RT hand Mode of Arrival: Ambulatory Source of Information: Patient Limitations: No Limitations Time Seen by Provider: 06/09/24 18:10 Description of Symptoms (Recalled from Triage Doc. by RN): PATIENT C/O DOG BITE TO RIGHT HAND TODAY HEENT Symptoms (Recalled from RN notes): No Resp Symptoms (Recalled from RN notes): No Skin Symptoms (Recalled from RN notes): Yes MS Symptoms (Recalled from RN notes): No Functional Status (Recalled from RN notes): WNL History of Present Illness Provider Complaint: Patient states that she was playing with her dog and he had a hurt foot and not sure what happened if he nipped at her or she hit his tooth with her hand but she noticed she had a small gash on top of her right hand States that she is not sure when her last tetanus was and thought she may need a couple stitches Related Data Home Medications ?Medication ?Instructions ?Recorded ?Confirmed estradiol 2 mg tablet 2 mg PO DAILY 01/25/24 02/26/24 Previous Rx's ?Medication ?Instructions ?Recorded aspirin 81 mg tablet,delayed 81 mg PO DAILY #30 tabs 01/26/24 release atorvastatin 40 mg tablet 40 mg PO HS #30 tabs 01/30/24 clopidogrel 75 mg tablet (Plavix) 75 mg PO DAILY #30 tabs 01/30/24 irbesartan 150 mg tablet 150 mg PO DAILY #90 tabs 05/01/24 amoxicillin 875 mg-potassium 1 tab PO Q12H 7 days #14 tabs 06/09/24 clavulanate 125 mg tablet Allergies Allergy/AdvReac Type Severity Reaction Status Date / Time Sulfa (Sulfonamide Allergy Unknown Rash Verified 02/26/24 14:43 Antibiotics) (SULFA (SULFONAMIDE ANTIBIOTICS)) Worker's Comp Is this a Worker's Comp case?: No [facility] Disclaimer: The information contained in this section may have been updated after the patient was seen, as this information can be updated by other users. Medical History Dizziness Numbness of left hand Sinus bradycardia HTN (hypertension) Left arm numbness Surgical History History of surgery HEART CATH History of hysterectomy History of hysterectomy with bilateral oophorectomy Family History Mother Irregular heart beat Social History Smoking Status: Former smoker tobacco type: cigarettes packs per day: 1 second hand exposure: No alcohol intake: never substance use type: denies use current occupational status: employed Travel in the last 8 weeks: None household members: spouse housing: house current occupation: [employer] current occupational exposures/hazards: No caffeine: No Have you lived/traveled outside [place] in past 30 days?: No Contact w/someone who lives/traveled outside US past 30 days?: No Exposure to someone with infectious disease in past 14 days?: No Do you have a fever (greater than 100.4 F or 38 C)?: No Have you tested positive for COVID-19: No Exposed to someone with COVID-19 in past 14 days?: No Do you have a sore throat?: No Do you have a cough?: No Do you have any weakness?: No Do you have any diarrhea?: No Are you experiencing any unusual bleeding?: No Do you have any muscle aches/pain?: No Do you have any abdominal pain?: No Are you experiencing loss of taste or smell?: No ROS Obtained: Yes All systems reviewed & no additional complaints except as documented and Yes Systems reviewed as appropriate & no additional complaints except as documented Constitutional Constitutional: Reports system reviewed and no additional complaints, except as documented and Reports as per HPI ENT Ears, Nose, Mouth, and Throat: Reports system reviewed and no additional complaints, except as documented and Reports as per HPI Cardiovascular Cardiovascular: Reports system reviewed and no additional complaints, except as documented and Reports as per HPI Respiratory Respiratory: Reports system reviewed and no additional complaints, except as documented and Reports as per HPI Gastrointestinal Gastrointestingal: Reports system reviewed and no additional complaints, except as documented and as per HPI Integumentary/Breasts Skin/Breast: Reports system reviewed and no additional complaints, except as documented, Reports as per HPI and Reports other (small laceration on top of right hand no active bleeding) Physical Exam General General appearance: alert and in no apparent distress ENT ENT exam: Present normal exam, normal oropharynx, mucous membranes moist and TM's normal bilaterally Respiratory Respiratory exam: Present normal lung sounds bilaterally; Absent respiratory distress or wheezes Cardiovascular Cardiovascular exam: Present regular rate, normal rhythm and normal heart sounds Expanded Upper Extremity Exam Right: Hand L/R back image: 2 1. small laceration noted noted no active bleeding Neurological Exam Neurological exam: Present alert, oriented X3 and normal gait Medical Decision Making Medical Records Screening: Per USPSTF and CDC recommendations, given the prevalence of disease in our region, it is our hospital?s policy to screen for HIV and viral Hepatitis for all patients aged 18 and over and those with ongoing risk factors. Gonzalo Inquiry Pt receiving controlled substance: No Gonzalo was queried for this patient: No Vital Signs: 06/09/24 17:40 Temperature 98.2 F Temperature Source Oral Pulse Rate [Left Brachial] 75 Respiratory Rate 19 Blood Pressure [Left Arm] 174/83 H Blood Pressure Mean [Left Arm] 113 Blood Pressure Source [Left Arm] Automatic Cuff Blood Pressure Position [Left Arm] Sitting 02 Sat by Pulse Oximetry 98 Oxygen Delivery Method Room Air Orders (Tests/Meds): ED MEDICATIONS Generic Name Dose Route Start Last Admin Trade Name Freq PRN Reason Stop Dose Admin Lidocaine HCl 2 ml 06/09/24 17:58 06/09/24 17:59 Lidocaine 1% Pf 2ml Ampule SUBCUT 06/09/24 17:59 2 ml ONCE ONE Administration Procedures Laceration Laceration 1: Site: hand Side (If applicable): right Size (cm): 1 Description: linear Depth: simple, single layer Local Anesthetic: lidocaine 1% Amount of anesthesia used (mL): 1 Pre-repair: wound explored and irrigated extensively Skin layer closed with: nylon Size (cm): 5-0 Number of sutures: 2 Technique: simple, interrupted (wound edges approximated well)
[2024-06-09 18:20] VITALS: BP 174/83; PULSE 75; RESP 19; TEMP 36.8; O2SAT 98
== END 2024-06-09 18:24 | disposition home or self-care (01) ==
PROVIDERS: Emergency Provider Nurse Practitioner; PCP Nurse Practitioner Family
DX: S61.411A Laceration without foreign body of right hand, initial encounter (principal); M79.641 Pain in right hand; W54.0XXA Bitten by dog, initial encounter; Y93.89 Activity, other specified; Y92.89 Other specified places as the place of occurrence of the external cause
CPT/HCPCS: 12001; 99212; G0381

== ENCOUNTER 2024-08-15 12:29 | Outpatient (CLI) | payer BC, SELFPAY ==
--- NOTE | 2024-08-15 12:33 | MM_ITS ---
PROCEDURE INFORMATION: Exam: MG Bilateral Screening 3D Mammography Exam date and time: 08/15/2024 12:34 PM Age: 48 years old Clinical indication: Screening examination TECHNIQUE: Imaging protocol: Bilateral Screening tomosynthesis and 2D mammography including computer-aided detection (CAD) when performed. COMPARISON: 1. MG MM DIG SCREENING MAMM BI W/CAD 08/15/2023 3:00 PM 2. MG MM DIG SCREENING MAMM BI W/CAD 08/11/2022 2:27 PM FINDINGS: MAMMOGRAPHY: Breast composition: The breasts are extremely dense, which lowers the sensitivity of mammography. Mass: None. Architectural distortion: None. Calcifications: No suspicious calcifications. Asymmetric density: None. Skin thickening: None. Axillary adenopathy: None. IMPRESSION: No mammographic evidence of malignancy. Annual screening is recommended unless otherwise clinically indicated. ASSESSMENT: BI-RADS Category 1: Negative.
== END 2024-08-15 23:59 | disposition home or self-care (01) ==
LOC: RAD 12:30
PROVIDERS: PCP Nurse Practitioner Family; Visit Provider Nurse Practitioner Family
DX: Z12.31 Encounter for screening mammogram for malignant neoplasm of breast (principal)
CPT/HCPCS: 77063; 77067

== ENCOUNTER 2024-08-26 15:32 | Outpatient (CLI) | payer BC, SELFPAY ==
[2024-08-26 16:41] LABS: Basophils % 0.5 % (0.1-2.0); Eosinophils # 0.2 K/mm3 (0.0-0.4); Eosinophils % 2.9 % (0.1-12.0); Hematocrit 34.4 % (37.0-47.0); Hemoglobin 12.2 g/dL (12.2-16.2); Lymphocytes # 1.8 K/mm3 (0.7-4.5); Lymphocytes % 29.5 % (10-50); Mean Corpuscular HGB Conc 35.5 g/dL (31.8-35.4); Mean Corpuscular Hemoglobin 30.7 pg (27.0-31.2); Mean Corpuscular Volume 86.4 fl (81-99); Mean Platelet Volume 10.3 fl (7.4-10.4); Monocytes # 0.5 K/mm3 (0.1-1.0); Monocytes % 7.2 % (1.7-9.3); Neutrophils # 3.7 K/mm3 (1.8-7.8); Neutrophils % 59.7 % (37.0-80.0); Platelet Count 242 K/mm3 (142-424); Red Blood Count 3.98 M/mm3 (4.20-5.40); Red Cell Distribution Width 13.1 % (11.5-17.5); White Blood Count 6.2 K/mm3 (4.8-10.8)
[2024-08-26 18:26] LABS: Alanine Aminotransferase 25 U/L (12-78); Albumin Level 4.1 g/dl (3.5-5.0); Alkaline Phosphatase 63 U/L (38-126); Anion Gap 9.9 mEq/L (5-15); Aspartate Amino Transferase 26 U/L (14-36); Bilirubin,Direct 0.1 mg/dl (0.0-0.4); Bilirubin,Indirect 0.4 mg/dL (0.0-0.9); Bilirubin,Total 0.5 mg/dl (0.2-1.3); Bilirubin,Unconjugated 0.4 mg/dL (0.0-1.1); Blood Urea Nitrogen 13 mg/dl (7-17); Calcium 8.8 mg/dl (8.4-10.2); Carbon Dioxide 26 mmol/L (22.0-30.0); Chloride 106 mmol/L (98-107); Chol/HDL Ratio 2.1 (1-3.5); Cholesterol 104 mg/dl (140-200); Estimated Glomerular Filt Rate 106 ml/min (>60); GFR (African American) 128 ML/MIN (>60); Glucose 76 mg/dl (74-100); HDL Cholesterol 49 mg/dl (40-60); Magnesium 1.9 mg/dl (1.6-2.3); Potassium 3.9 mmoL/L (3.5-5.1); Sodium 138 mmol/L (136-145); Total Protein,Serum 6.2 g/dl (6.3-8.2); Triglycerides 61 mg/dl (30-150); VLDL Cholesterol 12 mg/dL (0-40)
[2024-08-26 18:36] LABS: Direct LDL Cholesterol 37.16 mg/dL (100-129)
[2024-08-26 18:41] LABS: Free T4 (Free Thyroxine) 1.05 ng/dl (0.78-2.19)
[2024-08-26 18:56] LABS: Thyroid Stimulating Hormone 3.54 uIU/mL (0.465-4.68)
[2024-08-27 10:19] LABS: Iron 88 ug/dL (37-170)
[2024-08-27 10:29] LABS: Total Iron Binding Capacity 331 ug/dL (265-497)
[2024-08-27 12:42] LABS: Vitamin B12 385 pg/mL (239-931)
[2024-08-27 13:21] LABS: Folate 8.51 ng/mL
== END 2024-08-26 23:59 | disposition home or self-care (01) ==
LOC: LAB 15:32
PROVIDERS: PCP Nurse Practitioner Family; Visit Provider Physician Assistant
DX: I25.10 Atherosclerotic heart disease of native coronary artery without angina pectoris (principal); E78.49 Other hyperlipidemia; F17.200 Nicotine dependence, unspecified, uncomplicated; D64.9 Anemia, unspecified; Z86.2 Personal history of diseases of the blood and blood-forming organs and certain disorders involving the immune mechanism
CPT/HCPCS: 36415; 80048; 80061; 80076; 82607; 82746; 83540; 83550; 83735; 84439; 84443; 85025